=== PATIENT | female | born 1965 | race Two or more races ===

== ENCOUNTER 2024-08-13 06:16 | Day surgery (SDC) | payer BC, SELFPAY | END 2024-08-13 13:41 | disposition home or self-care (01) | LOC: GI 06:16 | PROVIDERS: ATTENDING PHYSICIAN Internal Medicine Gastroenterology | DX: Z12.11 Encounter for screening for malignant neoplasm of colon (principal); K64.8 Other hemorrhoids; K57.30 Diverticulosis of large intestine without perforation or abscess without bleeding; Z80.0 Family history of malignant neoplasm of digestive organs | CPT/HCPCS: G0105 ==

== ENCOUNTER 2025-05-14 06:19 | Day surgery (SDC) | payer BC, SELFPAY | END 2025-05-14 10:14 | disposition home or self-care (01) | LOC: GI 06:19 | PROVIDERS: ATTENDING PHYSICIAN Internal Medicine Gastroenterology | DX: R68.81 Early satiety (principal); R63.4 Abnormal weight loss; K25.9 Gastric ulcer, unspecified as acute or chronic, without hemorrhage or perforation; K31.89 Other diseases of stomach and duodenum | CPT/HCPCS: 43239; 88305; 88342 ==

== ENCOUNTER → 2025-05-27 13:22 | Outpatient (REF) | payer BC, SELFPAY | LOC: RAD 13:22 | PROVIDERS: ATTENDING PHYSICIAN Internal Medicine Gastroenterology; FAMILY PHYSICIAN Student in an Organized Health Care Education/Training Program | DX: R68.81 Early satiety (principal); R74.8 Abnormal levels of other serum enzymes; R63.4 Abnormal weight loss | CPT/HCPCS: 74177; Q9967 ==

== ENCOUNTER → 2025-06-03 14:46 | Outpatient (REF) | payer BC, SELFPAY ==
[2025-06-03 15:57] LABS: ALT (SGPT) 55 U/L (0-35); AST (SGOT) 79 U/L (14-36); Albumin 4.7 g/dl (3.5-5.0); Blood Urea Nitrogen 9 mg/dl (7-17); Calcium 9.4 mg/dl (8.4-10.2); Carbon Dioxide 26 mmol/L (22-30); Chloride 102 mmol/L (98-107); Glucose 106 mg/dl (70-99); Magnesium 2.2 mg/dl (1.6-2.3); Potassium 4.3 mmol/L (3.5-5.1); Sodium 139 mmol/L (135-145); Total Protein 7.3 g/dl (6.3-8.2); eGFR > 60.00
[2025-06-03 16:07] LABS: Alkaline Phosphatase > 2400 U/L (38-126)
[2025-06-03 16:20] LABS: Hematocrit 32.0 % (37.0-47.0); Hemoglobin 10.9 g/dL (12.0-16.0); Mean Corp Hgb Conc. 34.1 g/dL (33.0-37.0); Mean Corpuscular Volume 82.7 fL (81.0-99.0); Platelet Count 89 10^3/uL (130-400); Red Cell Dist. Width 15.9 % (11.5-14.5)
[2025-06-03 16:22] LABS: Absolute Neutrophils -Man Diff 4.8 10^3/uL (1.4-6.5); Platelets Checked Yes
[2025-06-03 16:23] LABS: Normal RBC Morphology No
[2025-06-03 16:24] LABS: Anisocytosis 2+; Hypochromasia 1+; Macrocytosis 1+; Microcytosis 1+; Polychromasia 1+; Total Cells Counted 100
[2025-06-03 16:27] LABS: CEA 43.0 ng/ml
[2025-06-03 16:31] LABS: CA 125 40.4 U/mL (0-35)
[2025-06-04 19:33] LABS: Vitamin D, 25-OH*** 25.8 ng/mL (30-80)
[2025-06-04 19:47] LABS: TSH 1.25 uIU/ml (0.47-4.68)
[2025-06-04 20:06] LABS: Vitamin B12 534 pg/ml (239-931)
[2025-06-06 00:04] LABS: CA 19-9 27 U/mL (<=35)
[2025-06-06 02:46] LABS: CA 27-29 103.4 U/mL (<=39.0)
== END ==
LOC: REG 14:46
PROVIDERS: ATTENDING PHYSICIAN Internal Medicine Hematology & Oncology; FAMILY PHYSICIAN Student in an Organized Health Care Education/Training Program
DX: R93.7 Abnormal findings on diagnostic imaging of other parts of musculoskeletal system (principal)
CPT/HCPCS: 36415; 80053; 82306; 82378; 82607; 82784; 83521; 83735; 84100; 84155; 84165; 84443; 85025; 86300; 86301; 86304; 86334

== ENCOUNTER 2025-06-06 21:54 | Emergency (ER) | payer BC, SELFPAY ==
[2025-06-06 22:01] VITALS: BP 154/75
--- NOTE | 2025-06-07 01:25 | ED.GENMED ---
History of Present Illness
General
Chief Complaint: Musculo-Skeletal Complaint
Source: patient
Exam Limitations: none
Time Seen by Provider: 06/07/25 01:13
Nursing documentation reviewed up to this point in time: agreed with
History of Present Illness
History of Present Illness:
59-year-old female w h/o PUD on Omeprazole and recently started Carafate, is here for numbness of her lower lip and tongue area she has been experiencing for the past few days the pain is 8-9 out of 10 when she walks and 3 out of 10 when she is
laying still. at 6 PM tonight she developed sudden excruciating pain in her right groin while she was walking into her house. She took Tylenol with no relief. No recollection of overuse or injury
She states her Alk Phos has been very high and she has appointment with Dr. Pepper in 6 days for a bone marrow biopsy.
Past History
Past History
ED Past Medical History: Other (Peptic ulcer disease yeah like)
ED Past Surgical History: None
Social History
Tobacco: Non-smoker
Personal:
Living: with family
Review of Systems
Review of Systems
Allergies reviewed?: Yes
All Other Systems: ROS reviewed and negative except as documented in HPI and ROS
Phy Exam
Physical Exam
Physical Exam:
GENERAL: No acute distress. A&Ox3.
CONSTITUTIONAL: Afebrile.
EYES: clear, conjunctivae normal
ENMT: moist mucus membranes, Pharynx nl
RESPIRATORY: Regular respirations, nonlabored, lungs clear.
CARDIOVASCULAR: Regular rate and rhythm, no murmurs, no rubs.
GI: Soft, nontender, normal BS
MUSCULOSKELETAL: Pain in right groin area elicited with straight leg raise, adduction and abduction with knee flexed. Pelvic rock negative. Distal neurovascular intact. Moves with ease. Well perfused. No edema
SKIN: Warm, dry, pink
PSYCH: Normal mood and affect. Well kept, interactive and appropriate
NEUROLOGIC: Awake, alert and oriented. No focal neurological deficits
Course
Orders/Labs/Results
Orders:
Orders
06/07/25 01:23
Hip, Right 2-3 Views [CR Hip - RT w/wo Pel 2-3 Vw*] Urgent
Comment:
Reason For Exam: groin pain, being worked up for CA, bone marrow bx
Include a pelvis x-ray?: Yes
06/07/25 01:54
Oxycodone/Acetaminophen [Percocet 5/325] 1 tablet PO NOW STA
Vital Signs
Initial and Last Documented VS:
Initial Vital Signs
Temp Pulse Resp BP Pulse Ox
97.8 F 98 18 154/75 97
06/06/25 22:01 06/06/25 22:01 06/06/25 22:01 06/06/25 22:01 06/06/25 22:01
Last Documented Vital Signs
Temp Pulse Resp BP Pulse Ox
97.8 F 89 16 122/64 96
06/06/25 22:01 06/07/25 01:35 06/07/25 01:35 06/07/25 01:35 06/07/25 01:35
MDM/Problems Addressed
Differential Diagnosis Includes:
numbness in lower lip and chin: may be related to malignancy
bony malignancy
MDM/Problems Addressed:
59-year-old female w h/o PUD on Omeprazole and recently started Carafate, is here for numbness of her lower lip and tongue area she has been experiencing for the past few days the pain is 8-9 out of 10 when she walks and 3 out of 10 when she is
laying still. at 6 PM tonight she developed sudden excruciating pain in her right groin while she was walking into her house. She took Tylenol with no relief. No recollection of overuse or injury
She states her Alk Phos has been very high and she has appointment with Dr. Pepper in 6 days for a bone marrow biopsy.
Patient had blood work done on 06/03 showing mild anemia, platelets 89, atypical lymphocytes,
Unremarkable. Chemistry showing greater than 2400 alk phos
Suspicious of her symptoms being due to metastatic disease
Will obtain right hip and pelvis x-ray to rule out pathologic fracture
2:45 a.m.
Xray right hip and pelvis reveal no acute fracture.
Plan: Pain medication, Rx for Tramadol sent to pt pharmacy
She will call Dr. Pepper Monday a.m.
Pt has walker at home to use if needed.
*Pulse Oximetry
SaO2: 97
Oxygen Mode of Delivery: Room air
Patient hypoxic: not evaluated
*Critical Care Note
Total Time (30-74mins, 75-104mins- exclusive of procedures): Not Applicable
ED Attending Note
-
Portions of this chart may have been created with voice recognition software.� Occasional wrong word or��sound alike� substitutions may have occurred due to the inherent limitations of voice recognition software.
Discharge Plan
Departure
Patient Disposition: Home (Routine Discharge)
Date of Disposition: 06/07/25
Time of Disposition: 02:47
Patient with high blood pressure during this ER visit?: No
Condition: Fair
Discharge Problem:
Right inguinal pain, Paresthesia of lower lip
Instructions: Muscle, joint, and bone pain (DC)
Prescriptions:
New
tramadol 50 mg tablet
50 mg PO Q8H PRN (Reason: Pain) Qty: 14 0RF
Referrals:
Jamila Pepper MD [Active, Oncology] - Follow up in 2-3 days
Activity Restrictions/Additional Instructions:
As we discussed, I sent a prescription to your pharmacy for Tramadol to use for pain id Ibuprofen or Tylenol is not helping
Call Dr. Pepper Monday and inform of today's visit and your groin pain and lip numbness.
Use your walker as needed.
Interventions
Interventions:
*Risk Screen - Suicide Last Done: 06/06/25 22:01
*General Assessment Last Done: 06/06/25 22:01
*Neglect/Abuse Screening Last Done: 06/06/25 22:01
*ED- Fall Risk Assessment Last Done: 06/07/25 01:32
*ED COVID-19 Vaccine History Last Done: 06/07/25 01:32
*ED Influenza Vaccine History Last Done: 06/07/25 01:32
ED-Musculoskeletal Assessment Last Done: 06/07/25 01:36
Discharge Date and Time
Print Language: BELARUSIAN
[2025-06-07 01:35] VITALS: BP 122/64
[2025-06-07 01:36] VITALS: BMI 29.1
[2025-06-07] MEDS: PERCOCET 5/325 1 TABLET PO (01:59)
[2025-06-07 03:14] VITALS: BP 144/61
== END 2025-06-07 03:20 | disposition home or self-care (01) ==
LOC: EMR 21:54
PROVIDERS: EMERGENCY PHYSICIAN Emergency Medicine; FAMILY PHYSICIAN Student in an Organized Health Care Education/Training Program
DX: R10.31 Right lower quadrant pain (principal); R20.2 Paresthesia of skin; Z87.11 Personal history of peptic ulcer disease
CPT/HCPCS: 99283; 73502

== ENCOUNTER → 2025-06-11 10:44 | Outpatient (REF) | payer BC, SELFPAY ==
[2025-06-11 11:34] VITALS: BP 135/60; BP_SYST 99
[2025-06-11 11:34] LABS: Hematocrit 29.9 % (37.0-47.0); Hemoglobin 10.1 g/dL (12.0-16.0); Mean Corp Hgb Conc. 33.8 g/dL (33.0-37.0); Mean Corpuscular Volume 83.3 fL (81.0-99.0); Platelet Count 97 10^3/uL (130-400); Red Cell Dist. Width 17.2 % (11.5-14.5)
[2025-06-11 11:54] LABS: INR 1.36; PT 17.3 Sec (11.4-14.6)
[2025-06-11 12:37] LABS: Absolute Neutrophils -Man Diff 4.8 10^3/uL (1.4-6.5); Anisocytosis Slight; Normal RBC Morphology No; Platelets Checked Yes; Polychromasia Slight; Total Cells Counted 100
[2025-06-11 12:40] VITALS: BP 129/60; BP_SYST 99
== END ==
LOC: RADI 10:44
PROVIDERS: ATTENDING PHYSICIAN Internal Medicine Hematology & Oncology; FAMILY PHYSICIAN Student in an Organized Health Care Education/Training Program
DX: M89.8X8 Other specified disorders of bone, other site (principal); D69.6 Thrombocytopenia, unspecified; D64.9 Anemia, unspecified; D68.8 Other specified coagulation defects
CPT/HCPCS: 36415; 38222; 77012; 85025; 85610; 88305; 88311; 88312; 88313

== ENCOUNTER → 2025-06-30 08:16 | Outpatient (REF) | payer BC, SELFPAY ==
[2025-06-30 08:55] VITALS: BP 112/74; BP_SYST 101; BMI 27.5
[2025-06-30] MEDS: ANCEF 10 IV (09:17)
[2025-06-30 10:15] VITALS: BP 117/47; BP_SYST 92
[2025-06-30 10:30] VITALS: BP 115/52; BP_SYST 89
[2025-06-30 10:45] VITALS: BP 114/50; BP_SYST 91
== END ==
LOC: RADI 08:16
PROVIDERS: ATTENDING PHYSICIAN Internal Medicine Hematology & Oncology
DX: C16.0 Malignant neoplasm of cardia (principal); C41.9 Malignant neoplasm of bone and articular cartilage, unspecified
CPT/HCPCS: 36561; 76937; 77001; 99152; 99153; C1788

== ENCOUNTER 2025-07-13 23:39 | Inpatient (IN) | payer BC, SELFPAY ==
[2025-07-13 19:11] VITALS: BP 115/53
[2025-07-13 19:17] VITALS: BMI 26.6
[2025-07-13 20:00] VITALS: BP 123/49
[2025-07-13] MEDS: NSS 1000 IV (20:43)
[2025-07-13 21:00] LABS: Hematocrit 22.7 % (37.0-47.0); Hemoglobin 8.0 g/dL (12.0-16.0); Mean Corp Hgb Conc. 35.2 g/dL (33.0-37.0); Mean Corpuscular Volume 80.2 fL (81.0-99.0); Red Cell Dist. Width 19.3 % (11.5-14.5)
[2025-07-13 21:11] LABS: Platelet Count 73 10^3/uL (130-400)
[2025-07-13] MEDS: BENADRYL 25 MG IV (21:11)
[2025-07-13] MEDS: REGLAN 10 MG IV (21:11)
[2025-07-13 21:20] LABS: Albumin 3.8 g/dl (3.5-5.0)
[2025-07-13 21:21] LABS: Troponin I < 0.012 ng/ml
[2025-07-13 21:22] LABS: Absolute Neutrophils -Man Diff 12.3 10^3/uL (1.4-6.5)
[2025-07-13 21:23] LABS: Normal RBC Morphology No; Platelets Checked Yes
[2025-07-13 21:24] LABS: Anisocytosis 1+; Hypochromasia 1+; Microcytosis 1+; Total Cells Counted 100
[2025-07-13 21:35] LABS: ALT (SGPT) 36 U/L (0-35); AST (SGOT) 53 U/L (14-36); Blood Urea Nitrogen 6 mg/dl (7-17); Calcium 4.9 mg/dl (8.4-10.2); Carbon Dioxide 20 mmol/L (22-30); Chloride 100 mmol/L (98-107); Estimated Creatinine Clearance 90 ml/min; Glucose 105 mg/dl (70-99); Lipase 270 U/L (23-300); Potassium 3.4 mmol/L (3.5-5.1); Sodium 131 mmol/L (135-145); Total Protein 6.5 g/dl (6.3-8.2); eGFR > 60.00
[2025-07-13 21:44] LABS: Alkaline Phosphatase > 2400 U/L (38-126)
[2025-07-13 22:09] LABS: Urine Character Cloudy (Clear)
[2025-07-13 22:22] LABS: Urine Squamous Cell 0-2 /LPF (Few)
[2025-07-13 22:23] LABS: Urine White Cell 50-60 /HPF (0-5)
--- NOTE | 2025-07-13 22:28 | ED.GENMED ---
History of Present Illness
General
Chief Complaint: Change Level of Consciousness
Source: patient and family
Time Seen by Provider: 07/13/25 20:12
History of Present Illness
History of Present Illness:
Note:
CHIEF COMPLAINT(S)
Fatigue and episodes of vision darkening.
HISTORY OF PRESENT ILLNESS
The patient is a 60-year-old female with a history of gastric cancer currently undergoing chemotherapy. She presents with fatigue and episodes of vision darkening. The symptoms started a few days ago, becoming notably worse a few hours prior to
presentation. The patient had her first chemotherapy treatment with cisplatin on Monday, which was administered over 48 hours, and has experienced increased lethargy since then. This evening, she experienced a new onset of darkness in her vision
that persisted for a few minutes, resembling an episode she had briefly on the day of treatment that resolved quickly.
Her oral intake has been poor due to the effects of gastric cancer and chemotherapy, contributing to dehydration. She was scheduled for an outpatient EGD with biopsy tomorrow, but due to her symptoms, there is a consideration of postponing. The
patient describes her vision episodes as a complete darkening of vision lasting a few seconds, followed by resolution. These episodes were associated with feelings of weakness, suggesting possible hypotension. The patient denies any chest pain and
has not experienced fever.
PAST MEDICAL AND SURGICAL HISTORY
History of gastric cancer currently under chemotherapy treatment with cisplatin.
ADDITIONAL HISTORY OBTAINED FROM SOURCES OTHER THAN THE PATIENT
The daughter provides additional information, noting the patient has been lethargic and her fluid intake has been poor. She reports that the patient has been more lethargic than usual following her chemotherapy treatment.
CHRONIC MEDICAL CONDITIONS SIGNIFICANTLY AFFECTING CARE
Gastric cancer undergoing chemotherapy.
SOCIAL DETERMINANTS AFFECTING HEALTH
The patient denies alcohol consumption issues, and there are no other specific social determinants mentioned.
MEDICATIONS
Uses ondansetron (Zofran) for nausea, last taken at 5:30 PM with some relief.
PHYSICAL EXAM
General: Alert, no acute distress.
Skin: Warm, dry.
Head: Normocephalic, atraumatic.
Neck: Supple, trachea midline.
Eye, Ears, Nose, Mouth, and Throat: Oral mucosa moist.
Cardiovascular: Irregular, a bit hyperdynamic, low blood pressure at 129/71 mmHg; no lower extremity edema.
Respiratory: Respirations are non-labored.
Gastrointestinal: Abdomen nondistended, no tenderness.
Back: Normal range of motion, normal alignment.
Musculoskeletal: Normal range of motion, normal strength.
Neurological: Alert and oriented to person, place, time, and situation, no focal neurological deficit observed.
Psychiatric: Cooperative, appropriate mood and affect.
PROBLEM LIST
Acute Problems:
- Fatigue
- Vision darkening episodes
- Dehydration possibly secondary to poor oral intake and chemotherapy
Chronic Problems:
- Gastric cancer under chemotherapy
PLAN
1. Obtain laboratory tests to assess kidney function, electrolytes, and compare with previous results.
2. Administer intravenous fluids to address dehydration.
3. Perform electrocardiogram to assess heart rhythm.
4. Consider postponing the scheduled EGD if current labs suggest significant derangement.
5. Monitor for worsening nausea and manage symptomatically; patient to inform if symptoms worsen for further intervention.
6. Require a urine sample for further analysis.
DIFFERENTIAL DIAGNOSIS
The Differential Diagnosis includes, in no particular order and is not limited to:
1. Dehydration-induced orthostatic hypotension
2. Chemotherapy side effects
3. Electrolyte imbalance
4. Anemia
5. Acute kidney injury
6. Stroke
7. Cardiac arrhythmia
8. Syncope
9. Transient ischemic attack
10. Hyponatremia
EKG
My independent EKG interpretation is:
- Time of EKG not specified
- Rhythm: Sinus Tachycardia
- Heart Rate: 102 bpm
- [place]: Normal
- QTc Interval: 495 ms
- Abnormalities: Interventricular Conduction Delay
- SD Interval: Not specified
- QRS Duration: Not specified
- Abnormalities: Poor R-wave Progression
- ST Segment/T Wave: No acute ischemia observed
Disposition:
SUMMARY OF ENCOUNTER
A 60-year-old female undergoing chemotherapy for gastric cancer presented with profound weakness and nausea. Laboratory tests revealed leukocytosis with a white blood cell count of 14.7, anemia with hemoglobin at 8.0, and mild thrombocytopenia with
a platelet count of 73. There was also 10% bandemia. Chemistry panel noted hypokalemia at 3.4 and concerning hypocalcemia with a corrected calcium level of 4.9 and an ionized calcium of 0.64. Alkaline phosphatase was significantly elevated at
greater than 2400. Troponin levels were negative. Urinalysis showed 3+ leukocyte esterase, 50�60 white blood cells, and many bacteria, suggesting a urinary tract infection. Management included replacing potassium and calcium, checking blood cultures
and lactic acid, treating for a urinary tract infection, continuing intravenous fluids, and providing antiemetics. The patient was afebrile and medically stable after treatment and was admitted for further care.
DISPOSITION
Admit.
ASSESSMENT
- Profound weakness and nausea possibly secondary to chemotherapy effects, electrolyte imbalance, and urinary tract infection.
- Leukocytosis, anemia, and thrombocytopenia likely related to chemotherapy and possible infection.
- Hypokalemia and hypocalcemia requiring replacement.
- Urinary tract infection suggested by urinalysis findings.
EMERGENCY TREATMENTS ADMINISTERED
Intravenous fluids, potassium replacement, calcium replacement, and antiemetics were administered.
MANAGEMENT OF THE PATIENTS CARE WAS DISCUSSED WITH
Hospitalist.
PLAN
- Continue intravenous fluids to maintain hydration and electrolyte balance.
- Replace potassium and calcium to address deficiencies.
- Initiate antibiotic therapy for a urinary tract infection based on urinalysis results.
- Monitor vital signs and laboratory values closely.
- Admit the patient for further evaluation and management given significant laboratory derangements.
INDEPENDENT REVIEW OF LABS AND INTERPRETATION OF TESTS
My independent review of the complete blood count shows leukocytosis with a white blood cell count of 14.7 and anemia with hemoglobin at 8.0.
My independent review of the chemistry panel reveals hypokalemia at 3.4 and hypocalcemia with a corrected calcium level of 4.9 and an ionized calcium at 0.64.
My independent review of the urinalysis indicates a urinary tract infection with 3+ leukocyte esterase, 50�60 white blood cells, and many bacteria.
MEDICATION RECONCILIATION
Potassium replacement, calcium replacement, and antiemetics were administered during the visit.
MEDICAL DECISION MAKING
1. Number and Complexity of Problems Addressed:
Chronic conditions affecting care include gastric cancer undergoing chemotherapy.
Differential diagnosis includes dehydration-induced orthostatic hypotension, chemotherapy side effects, electrolyte imbalance, anemia, acute kidney injury, stroke, cardiac arrhythmia, syncope, transient ischemic attack, and hyponatremia.
2. Data:
Category 1:
- Laboratory tests reviewed include the complete blood count, chemistry panel, and urinalysis.
Category 2:
- Clinical information was obtained from the patients history and lab results.
Category 3:
- Discussion of management with hospitalist based on the laboratory and clinical findings.
3. Risk:
- Prescription drug management or therapy requiring monitoring for toxicity.
- Decisions regarding diagnostic testing with risks such as blood cultures and lactic acid.
- Admission for further management due to significant laboratory derangements and risk of complications.
DIAGNOSIS
- Anemia, unspecified (D64.9)
- Thrombocytopenia, unspecified (D69.6)
- Leukocytosis, unspecified (D72.829)
- Hypokalemia (E87.6)
- Hypocalcemia (E83.51)
- Urinary tract infection, site not specified (N39.0)
Past History
Past History
ED Past Medical History: Other (Peptic ulcer disease yeah like)
ED Past Surgical History: None
Social History
Tobacco: Non-smoker
Personal:
Living: with family
Phy Exam
Physical Exam
Physical Exam:
.
Course
Orders/Labs/Results
Orders:
Orders
07/13/25 19:19
Electrocardiogram (*1) Urgent
Reason for Study: Vertigo / Dizzy
Other Reason for Exam: increased lethergy
EKG- Treatment ONCE
07/13/25 20:31
0.9% Sodium Chloride 1000 ml [Nss] 1,000 ml IV BOLUS
07/13/25 20:42
Complete Blood Count/With Diff Urgent
Comprehensive Metabolic Panel Urgent
Lipase Urgent
Magnesium Urgent
Manual Differential Urgent
Phosphorus Urgent
Comment: ADD ON
Troponin I Urgent
07/13/25 20:55
Diphenhydramine [Benadryl] 25 mg IV NOW STA
Metoclopramide [Reglan] 10 mg IV NOW STA
07/13/25 22:01
Urinalysis Reflex To Culture Urgent
Date Specimen was Collected: 07/13/25
Time Specimen was Collected: 21:59
Urine Microscopic Reflex Cult Urgent
Urine Culture Urgent
[facility] Source: U
Specimen Description:
Date Specimen was Collected: 07/13/25
Time Specimen was Collected: 21:59
07/13/25 22:16
Ionized Calcium Urgent
07/13/25 22:27
Calcium CHLORIDE [Calcium Chloride 10% Syringe] 1,000 mg 0.9% Sodium Chloride 50 ml [Nss] 50 ml IV NOW
07/13/25 22:35
Calcium CHLORIDE [Calcium Chloride 10% Syringe] 1,000 mg 0.9% Sodium Chloride 50 ml [Nss] 50 ml IV NOW
07/13/25 22:37
Add On- LAB Urgent
Tests Added?: Magnesium
Potassium Chloride 10% Elixir [KCl Elixir] 40 meq PO NOW STA
07/13/25 22:41
Lactic Acid Q4H
Comment: CANCEL 2nd LACTIC ACID IF 1st LACTIC ACID IS LESS THAN 2
Blood Culture Q30M
[facility] Source: Blood/Venous
Specimen Description:
07/13/25 22:43
CefTRIAXone [Rocephin] 2,000 mg IV NOW STA
07/13/25 23:00
Blood Culture Q30M
[facility] Source: Blood/Venous
Specimen Description:
Dextrose 5%/0.45%Sodchl 500 ml [D5/0.45%NaCl] 500 ml Potassium Chloride [KCl] 20 meq IV 120 mls/hr
07/13/25 23:08
Add On- LAB Stat
Tests Added?: phosphorous level,
07/14/25 02:30
Lactic Acid Q4H
Comment: CANCEL 2nd LACTIC ACID IF 1st LACTIC ACID IS LESS THAN 2
Abnormal Lab Results
07/13/25 07/13/25 07/13/25
20:42 22:01 22:16
WBC 14.7 H 10^3/uL
(4.8-10.8)
RBC 2.83 L 10^6/uL
(4.20-5.40)
Hgb 8.0 L g/dL
(12.0-16.0)
Hct 22.7 L %
(37.0-47.0)
MCV 80.2 L fL
(81.0-99.0)
RDW 19.3 H %
(11.5-14.5)
Plt Count 73 L 10^3/uL
(130-400)
MPV 10.7 H fL
(7.4-10.4)
Abs Neuts (Manual) 12.3 H 10^3/uL
(1.4-6.5)
Band Neutrophils 10 H %
(0-3)
Lymphocytes (Manual) 10 L %
(20-51)
Sodium 131 L mmol/L
(135-145)
Potassium 3.4 L mmol/L
(3.5-5.1)
Carbon Dioxide 20 L mmol/L
(22-30)
BUN 6 L mg/dl
(7-17)
Creatinine 0.4 L mg/dL
(0.6-1.0)
Glucose 105 H mg/dl
(70-99)
Calcium 4.9 L* mg/dl
(8.4-10.2)
Ionized Calcium 0.64 L mMOL/L
(1.15-1.33)
AST 53 H U/L
(14-36)
ALT 36 H U/L
(0-35)
Alkaline Phosphatase > 2400 H U/L
(38-126)
Urine Ketones 3+ A
(Negative)
Ur Occult Blood Reflex 2+ A
(Negative)
Urine Urobilinogen 2+ A
(Neg - 1+)
Leukocyte Esterase Rfl 3+ A
(Negative)
Urine RBC 7-10 A /HPF
(0-2)
Urine WBC (Reflex) 50-60 A /HPF
(0-5)
Urine Bacteria (Reflex) Many A
(Negative)
Urine Albumin (Reflex) 2+ A
(Neg - Trace)
07/13/25 20:42
07/13/25 20:42
Vital Signs
Initial and Last Documented VS:
Initial Vital Signs
Temp Pulse Resp BP Pulse Ox
98.6 F 102 22 115/53 98
07/13/25 19:11 07/13/25 19:11 07/13/25 19:11 07/13/25 19:11 07/13/25 19:11
Last Documented Vital Signs
Temp Pulse Resp BP Pulse Ox
98.6 F 103 23 123/49 96
07/13/25 19:11 07/13/25 22:30 07/13/25 22:30 07/13/25 20:00 07/13/25 22:30
*Pulse Oximetry
SaO2: 98
Oxygen Mode of Delivery: Room air
Patient hypoxic: no
*Critical Care Note
Total Time (30-74mins, 75-104mins- exclusive of procedures): Not Applicable
ED Attending Note
-
Portions of this chart may have been created with voice recognition software.� Occasional wrong word or��sound alike� substitutions may have occurred due to the inherent limitations of voice recognition software.
Discharge Plan
Departure
Patient Disposition: Admit
Date of Disposition: 07/13/25
Time of Disposition: 22:29
Admit to: Telemetry
Presentation/result/management discussed w/ accepting MD/DO: Hospitalist
Discharge Problem:
Hypocalcemia, Chemotherapy adverse reaction, Anemia, UTI (urinary tract infection), Acute hypokalemia, Thrombocytopenia
Prescriptions:
No Action
acetaminophen [Tylenol] 325 mg Tablet
650 mg PO Q6H PRN (Reason: pain)
sucralfate 1 gram Tablet
1 g PO BID
omeprazole 40 mg Capsule,Delayed Release(Dr/Ec)
40 mg PO DAILY
gabapentin 100 mg Capsule
100 mg PO HS
Referrals:
Karina Knutson MD [Family Provider]
Interventions
Interventions:
*Risk Screen - Suicide Last Done: 07/13/25 19:20
*General Assessment Last Done: 07/13/25 19:20
*Neglect/Abuse Screening Last Done: 07/13/25 19:20
*ED COVID-19 Vaccine History Last Done: 07/13/25 19:20
*ED Influenza Vaccine History Last Done: 07/13/25 19:20
[facility] Risk Assessment Tool Last Done: 07/13/25 19:09
ED- Cardiac Assessment Last Done: 07/13/25 19:22
ED- Neurological Assessment Last Done: 07/13/25 19:22
ED-Psychological Assessment Last Done: 07/13/25 19:22
ED- Pulmonary Assessment Last Done: 07/13/25 19:22
Discharge Date and Time
Print Language: BURKINAN
--- NOTE | 2025-07-13 22:44 | HPS.HSE ---
Family Physician
-
Family Physician: Karina Knutson MD
Chief Complaint
-
Weakness and fatigue
History of Present Illness
This is a 60-year-old female who has a recent diagnosis of gastric cancer status post EGD and bone marrow biopsy which is confirmatory of a diagnosis presents to the emergency department after recent infusion with FOLFOX with symptoms of weakness
dizziness and lightheadedness.
Patient reports perioral paresthesias, numbness and tingling in the fingertips, generalized weakness, nausea without vomiting. Denies any diarrhea. Denies any direct bony pain. Denies having fevers or chills.
Reports poor intake over the last few days. She is pending a follow-up EGD in a.m. and has been followed by [facility].
Patient takes omeprazole twice daily, as needed Zofran as well as Carafate and recently was started on calcium supplementation.
In the emergency department she was afebrile blood pressure was 115 respiratory, she was tachycardic to 103 and ECG shows sinus tachycardia at rate of [address] or T wave changes. White count was 14.7, hemoglobin was 8.0 which is
down from 10.1 recently, platelet count of 73. She has 10% bands. Electrolytes notable for potassium of 3.4, normal BUN and creatinine and a normal glucose. Calcium is down to 4.9 with ionized calcium of 0.64. She has an elevated alk phos to
2400 AST and ALT mildly elevated at 53 and 38. She otherwise has normal lipase. Troponin was unremarkable. Urinalysis was positive
Medical History
Past Medical History
Past Medical History: Reports Cancer (Gastric cancer) and GERD
Past Surgical History: Reports None
Social History
Tobacco: Non-smoker
Alcohol: None
Personal:
Living: With Family
Family History
Family History: Not pertinent
Allergies / Home Medications
Allergies reflects when Allergies were last updated in [facility].
Home Medications with original date entered in [facility]
Allergy/Medication List:
Allergies
Allergy/AdvReac Type Severity Reaction Status Date / Time
No Known Allergies Allergy Verified 06/26/25 13:35
Home Medications
acetaminophen 325 mg tablet (Tylenol) 650 mg PO Q6H PRN pain 06/09/25
omeprazole 40 mg capsule,delayed release 40 mg PO DAILY 06/09/25
sucralfate 1 gram tablet 1 g PO BID 06/09/25
gabapentin 100 mg capsule 100 mg PO HS 06/30/25
Review of Systems
-
Constitutional: Reports Weight Loss and Fatigue
EENT: Reports No Symptoms
Respiratory: Reports No Symptoms
Cardiac: Reports No Symptoms
Abdomen/GI: Reports No Symptoms
: Reports No Symptoms
Musculoskeletal: Reports No Symptoms
Skin: Reports No Symptoms
Neurological: Reports No Symptoms
Endocrine: Reports No Symptoms
Hematologic/Lymphatic: Reports No Symptoms
Psych: Reports No Symptoms
Physical Exam
Vital Signs
Vital Signs
Temp Pulse Resp BP Pulse Ox
98.6 F 103 23 123/49 96
07/13/25 19:11 07/13/25 22:30 07/13/25 22:30 07/13/25 20:00 07/13/25 22:30
Physical Exam
General: Well Developed, Well Nourished and No Apparent Distress
HEENT: NormoCephalic, Moist mucous membranes and Atraumatic
Respiratory: Clear
Cardiac: S1/S2 and Regular Rhythm; No Murmur or Rub
GI: Soft, Non Tender, Non Distended and Normal Bowel Sounds; No Organomegaly
Rectal: Deferred by Provider
Genito-urinary: Deferred by me
Musculoskeletal: No Clubbing, No Cyanosis and No Edema
Skin: No Rash
Neuro: AO x 3 and Nonfocal/grossly intact
Hematologic/Lymphatic: No Lymphadenopathy
Laboratory Results
-
07/13/25 20:42
07/13/25 20:42
Laboratory Results
Total Bilirubin 1.0 mg/dl (0.2-1.3) 07/13/25 20:42
AST 53 U/L (14-36) H 07/13/25 20:42
ALT 36 U/L (0-35) H 07/13/25 20:42
Alkaline Phosphatase > 2400 U/L (38-126) H 07/13/25 20:42
Troponin I < 0.012 ng/ml 07/13/25 20:42
Lipase 270 U/L (23-300) 07/13/25 20:42
Data Reviewed
-
Medical Tests (Nuc Med, Echo, EKG etc): Image Personally Visualized and interpreted
Lab Data: Labs Reviewed by me
Old Records: Reviewed
Impression/Plan
-
IMPRESSION:
60 y.o with h/o gastric ca (negative biopsy from stomach), positive bone marrow biopsy for gastric ca, s/p FOLFOX recently comes to ED with weakness, nausea, blurred vision, s/p FOLFOX on 07/08. Has perioral parasthesias but no tetany. Found to be
profoundly hypocalcemic to 4.9, ionized calcium 0.64. Mild hypokalemia and mild hyponatremia. Anemia to 8.0 and likely a UTI.
PLAN:
Symptomatic Hypocalcemia - Suspect secondary to chemo but could be malignancy related.
- admit to telemetry
- mag level pending
- check vit d and 1,25 vit d, pth and phosphorous levels
- start IV calcium supplementation
- oral calcium supplementation and vit d supplementation
- IV fluids and K supplementation
- nephrology consult
UTI - + u/a, leukocytosis with bandemia (likely chemo, no known stimulating agent given)
- blood and urine cultures
- IV ceftriaxone
Symptomatic anemia - likely due to chemotherapy (thrombocytopenia also noted). No evidence of bleeding but possible gastric mass can cause GI bleed. Pending repeat EGD
- type and screen, transfuse for Hgb < 7
- trend h/h
- retic, iron panel
- continue ppi bid orally
- oncology consultation
- GI consultation
Thrombocytopenia - present since May. Downtrending. No current risk of bleeding
- monitor, ok for dvt ppx
Abnormal liver enzymes - unchanged from May. Related to malignancy
DVT PPX - heparin sq q 12
Code status - Full Code
[2025-07-13 23:00] VITALS: BP 117/57
[2025-07-13 23:11] LABS: Magnesium 1.7 mg/dl (1.6-2.3)
[2025-07-13] MEDS: ROCEPHIN 2000 MG IV (23:35)
[2025-07-13] MEDS: CALCIUM CHLORIDE 10% SYRINGE 60 MG IV (23:38)
[2025-07-14] VITALS (14 sets, daily range): BP systolic 101–156; BP diastolic 44–76; BMI 26.4
[2025-07-14] MEDS: KCL 160 MEQ IV ×2 (00:23→02:33)
[2025-07-14] MEDS: TYLENOL 650 MG PO (00:38)
[2025-07-14] MEDS: NSS 1000 IV ×2 (00:48→11:08)
[2025-07-14] MEDS: CALCIUM GLUCONATE 280 MG IV (02:33)
[2025-07-14 05:56] LABS: Blood Urea Nitrogen 5 mg/dl (7-17); Calcium 5.5 mg/dl (8.4-10.2); Carbon Dioxide 18 mmol/L (22-30); Chloride 107 mmol/L (98-107); Estimated Creatinine Clearance 90 ml/min; Glucose 112 mg/dl (70-99); Iron 158 ug/dl (37-170); Magnesium 1.8 mg/dl (1.6-2.3); Potassium 4.1 mmol/L (3.5-5.1); Sodium 132 mmol/L (135-145); eGFR > 60.00
[2025-07-14 05:59] LABS: Hematocrit 19.2 % (37.0-47.0); Hemoglobin 6.7 g/dL (12.0-16.0); Mean Corp Hgb Conc. 34.9 g/dL (33.0-37.0); Mean Corpuscular Volume 80.7 fL (81.0-99.0); Platelet Count 59 10^3/uL (130-400); Red Cell Dist. Width 19.6 % (11.5-14.5); Reticulocyte Count 0.9 % (0.4-2.8)
[2025-07-14 06:02] LABS: Total Iron Binding Capacity 263 ug/dl (265-497)
[2025-07-14 06:11] LABS: Vitamin D, 25-OH*** 19.2 ng/mL (30-80)
[2025-07-14 06:24] LABS: TSH 1.35 uIU/ml (0.47-4.68)
--- NOTE | 2025-07-14 07:23 | PTCARENOTE ---
Patient arrived on unit @0054 via stretcher from ED, ambulate to bed with assist x1. Patient AAOx3 denies any pain or discomfort. Skin assessment completed oriented to unit, call martinez within reach.
[2025-07-14] MEDS: NSS IV (07:32)
[2025-07-14] MEDS: CARAFATE 1 GRAM PO (08:51)
[2025-07-14] MEDS: HEPARIN 5000 UNITS SC (08:52)
[2025-07-14] MEDS: OSCAL 500 + D 500 MG PO ×3 (08:52→21:17)
[2025-07-14] MEDS: PROTONIX 40 MG PO ×2 (08:52→20:26)
[2025-07-14] MEDS: ZOFRAN 4 MG IV (09:02)
--- NOTE | 2025-07-14 09:15 | CON.ONC ---
Consultation
-
Date Consultation Requested: 07/14/25
Date Consultation Performed: 07/14/25
Requesting Provider: Dr. Shirley Coley
Performing Provider: Dr. Joleen Cohn
Reason for Consultation: metastatic gastric cancer, anemia
Impression
Impression
stage IV gastric cancer via bone marrow biopsy, no loss of mismatch repair deficiency on Guardent 360 or [employer]- PDL 1 not detected -EGD gastric bx May 2025 no malignancy -PET with stomach & bone uptake
s/p C1 FOLFOX 07/08, pegfilgrastim 07/10
s/p 1st dose of xgeva 07/08
AOCD/malignancy DONI started 07/10 - iron 144, IS 48. ferritin 984 -SPEP no M spike -acute on chronic anemia
pancytopenia 2/2 bone marrow involvement of malignancy, chemotherapy
healing fracture pubic ramus
hypocalcemia 2/2 xgeva
hypovitaminosis D
stable transaminitis
unclear etiology for elevated Ca27.29
Plan
Plan
follow bcx
stat CBC
transfuse Hgb <7 or as needed for sxs anemia
monitor for bleeding
check retic, B12, folate
replete calcium
f/u GI consult to consider repeat EGD
will ask path to added ER/FL/HER2 to IHC from BMBx
Pt son at the bedside during visit provided updates and questions answered
Patient History
History of Present Illness
60yo F who presented to ER for evaluation of buccal numbness, b/l hand numbness, general weakness, dizziness, and lightheadeness. Her initial evaluation revealed a WBC 14.7, Hgb 8, platelet count 73,000, Na 131, potassium 3.4, calcium 4.9,
ionized calcium 0.64, AST 53, ALT 36, Alk phos 2400.
In brief, she is known to Dr. Pepper for management of stage IV gastric cancer. She was evaluated by GI due to abdominal fullness, early satiety, weight loss, and nausea. EGD May 2025 showed a nonbleeding gastric ulcer, biopsy showed benign
gastric antral mucosa with mol,d reactive changes. It was negative for dysplasia or malignancy. Random stomach biopsies showed gastric fundic type mucosa with no significant inflammation, H. pylori negative. Her CT scans of the abdomen and pelvis
05/27/2025 showed widespread heterogeneous appearance of included osseous structures with likely innumerable scattered sclerotic foci. She underwent a bone marrow biospy 06/11/2025 that showed trilineage aplasia and hypercellular bone marrow entirely
replaced by metastatic carcinoma, IHC suggested GI origin. Molecular�tumor�type�was�consistent�with�gastroesophageal�with�greater�than�99%�confidence�level�.�She underwent C1 FOLFOX 07/08, pegfilgrastim 07/10. She also started xgeva bone ppx 07/08 and
DONI for AOCD/malignancy 07/10.
Clinically, she reports continued periorbital and b/l hand paraesthesias, nausea, dizziness, and changes in hearing. She denies vomiting, abdominal pain, chest pain, palpitations.
Afebrile, no hypoxia or hypotension.
Past-Medical/Surgical History
PMH: GERD
PSH bone marrow biopsy
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 denies tobacco, ETOH, or recreational drugs
Family: father lung cancer, mother colon cancer stage I
Patient Medication
�Medication �Instructions �Recorded �Confirmed �Last Taken �Type
acetaminophen 325 mg tablet 650 mg PO Q6H PRN pain 06/09/25 06/30/25 06/29/25 History
(Tylenol)
omeprazole 40 mg capsule,delayed 40 mg PO DAILY 06/09/25 06/30/25 06/29/25 History
release
sucralfate 1 gram tablet 1 g PO BID 06/09/25 06/30/25 06/29/25 History
gabapentin 100 mg capsule 100 mg PO HS 06/30/25 06/30/25 06/29/25 History
Active Medications
Generic Name Dose Route Start Last Admin
Trade Name Freq PRN Reason Stop Dose Admin
Acetaminophen 650 mg 07/14/25 00:13 07/14/25 00:38
Acetaminophen 325 Mg Tablet PO 08/11/25 00:12 650 mg
Q4HPRN PRN Administration
mild pain/MCGINNIS/temp> 100.4F
Bisacodyl 10 mg 07/14/25 01:21
Bisacodyl 10 Mg Rectal Suppository RECTAL 08/11/25 01:20
[id number] PRN
constipation
Calcium/Vitamin D 500 mg 07/14/25 08:00 07/14/25 08:52
Calcium Carbonate 500 Mg/Vitamin D 5 Mcg (200 Units) Tablet PO 08/11/25 07:59 500 mg
TID MARIANA Administration
Ceftriaxone Sodium 1,000 mg 07/14/25 23:00
Ceftriaxone 1000 Mg / 10 Ml Vial IV
Q24H MARIANA
Heparin Sodium 5,000 units 07/14/25 08:00 07/14/25 08:52
Heparin 5,000 Units/Ml 1 Ml Vial SC 08/11/25 07:59 5,000 units
Q12 MARIANA Administration
Heparin Sodium (Porcine) 500 unit 07/14/25 03:45 07/14/25 05:00
Heparin Flush Pf (100 Unit/Ml) 5 Ml Syringe IV 08/11/25 03:44 500 unit
PER PROTOCOL MARIANA Administration
Sodium Chloride 1,000 mls @ 100 mls/hr 07/14/25 01:21 07/14/25 07:32
Nss IV Not Given
.Q10H MARIANA
Ondansetron HCl 4 mg 07/14/25 01:21 07/14/25 09:02
Ondansetron 4 Mg/2 Ml Vial IV 08/11/25 01:20 4 mg
Q6HPRN PRN Administration
nausea and vomiting
Oxycodone HCl 5 mg 07/14/25 01:21
Oxycodone 5 Mg Regular Release Tablet PO 07/28/25 01:20
Q4HPRN PRN
moderate pain
Pantoprazole Sodium 40 mg 07/14/25 08:00 07/14/25 08:52
Pantoprazole 40 Mg Delayed Release Tablet PO 08/11/25 07:59 40 mg
BID MARIANA Administration
Polyethylene Glycol 17 grams 07/14/25 01:21
Polyethylene Glycol Powder 17 Grams Packet PO 08/11/25 01:20
DAILYPRN PRN
constipation
Senna/Docusate Sodium 1 tablet 07/14/25 01:21
Docusate W/Senna (Dyana-Colace) Tablet PO 08/11/25 01:20
BIDPRN PRN
constipation
Sodium Chloride 0 flush 07/14/25 01:00
Sodium Chloride 0.9% (Flush) Syringe IV 08/11/25 00:59
PER PROTOCOL MARIANA
Sterile Water 10 ml 07/14/25 23:00
Sterile Water For Injection 10 Ml Vial IV 08/11/25 22:59
Q24H MARIANA
Sucralfate 1 gram 07/14/25 08:00 07/14/25 08:51
Sucralfate 1 Gram Tablet PO 08/11/25 07:59 1 gram
BID MARIANA Administration
Review of Systems
-
ROS is notable for HPI, otherwise negative
Physical Exam
-
General: No Apparent Distress
HEENT: Moist Mucous Membranes; Negative Jaundice
Pulmonary: Other (unlabored)
GI: Soft
Extremities: Pulses Present
Neurology: Non Focal
Skin: Warm
Psych: Calm
Labs
Lab Results
WBC 13.6 10^3/uL (4.8-10.8) H 07/14/25 05:15
RBC 2.38 10^6/uL (4.20-5.40) L 07/14/25 05:15
Hgb 6.7 g/dL (12.0-16.0) L* 07/14/25 05:15
Hct 19.2 % (37.0-47.0) L* 07/14/25 05:15
MCV 80.7 fL (81.0-99.0) L 07/14/25 05:15
MCH 28.2 pg (27.0-31.0) 07/14/25 05:15
MCHC 34.9 g/dL (33.0-37.0) 07/14/25 05:15
RDW 19.6 % (11.5-14.5) H 07/14/25 05:15
Plt Count 59 10^3/uL (130-400) L 07/14/25 05:15
MPV 10.6 fL (7.4-10.4) H 07/14/25 05:15
Creatinine 0.4 mg/dL (0.6-1.0) L 07/14/25 05:15
Vital Signs
Vital Signs
Temp Pulse Resp BP Pulse Ox
98.2 F 105 16 119/60 97
07/14/25 08:07 07/14/25 08:07 07/14/25 08:07 07/14/25 08:07 07/14/25 08:07
--- NOTE | 2025-07-14 10:07 | W.PN.HOSP.TC ---
Today's Communication/Plan
-
see plan
Assessment / Plan
Assessment / Plan
Gen: NAD, AAOx3.
Eyes: EOMI, PERRLA, no scleral icterus.
Neck: supple.
CV: RRR, +S1/S2, no m/r/g.
Resp: CTAB, no rales, wheezes, or rhonchi.
Abd: +BS, soft, NT, ND
Skin: No rashes.
Neuro: CN 2-12 intact, non-focal.
Psych: Normal mood and affect.
Symptomatic anemia:
-likely due to chemotherapy (thrombocytopenia also noted). No evidence of bleeding but possible gastric mass can cause GI bleed. Pending repeat EGD.
-transfuse 2U pRBCs
-cont PPI BID
-GI c/s
Symptomatic Hypocalcemia:
-likely due to chemo and Vit D deficiency
-50,000IU Vit-D2 weekly x 6 weeks
-cont to trend and replete Ca PRN
Other problems:
Note, pt without any urinary symptoms and is afebrile. Leukocytosis could easily be reactive or due to G-CSF (will discuss if/when pt received G-CSF). At this time there is no reason to think the pt has a UTI. Stop Rocephin.
Prolonged QTc: recheck ECG in AM, currently on tele
Hyponatremia, mild
Hypokalemia, resolved
Hypophosphatemia: Replete with sodium phosphate
Thrombocytopenia, acute on chronic, trend
Transaminitis and elevated alkaline phosphatase due to malignancy, chronic, unchanged
h/o gastric ca (negative biopsy from stomach), positive bone marrow biopsy for gastric ca, s/p FOLFOX, c/s ONC
FULL/SCDs (cannot give heparin with Hb 6.7)
Total time spent on today's encounter was 50 minutes which included time spent in counseling the patient/family regarding diagnosis and treatment plan as listed above, goals of care, and symptom management. Case was discussed with nursing staff,
specialists, and care coordinators/case management. All labs and imaging personally reviewed by me. Remainder the time spent in detailed review of previous records, lab data, imaging, and other medical provider documentation.
Anticipated Discharge: > 48 hours
Subjective/Interval History
-
Date of Service: July 14, 2025
Pt still with nausea, tingling in fingertips, and tightness in jaw.
Objective Data
-
Labs:
Laboratory Results
07/14/25 07/14/25
05:15 09:31
WBC 13.6 H Pending
Hgb 6.7 L* Pending
Hct 19.2 L* Pending
Plt Count 59 L Pending
Sodium 132 L
Potassium 4.1
Chloride 107
Carbon Dioxide 18 L
BUN 5 L
Creatinine 0.4 L
Glucose 112 H
Calcium 5.5 L*
Vital Signs:
Vital Signs
Temp Pulse Resp BP Pulse Ox
98.2 F 105 16 119/60 97
07/14/25 08:07 07/14/25 08:07 07/14/25 08:07 07/14/25 08:07 07/14/25 08:07
I&O
07/13/25 07/14/25 07/15/25
06:59 06:59 06:59
Intake Total 480 / 480
Balance 480 / 480
[2025-07-14 10:27] LABS: Hematocrit 19.2 % (37.0-47.0); Hemoglobin 6.8 g/dL (12.0-16.0); Mean Corp Hgb Conc. 35.4 g/dL (33.0-37.0); Mean Corpuscular Volume 80.0 fL (81.0-99.0); Platelet Count 63 10^3/uL (130-400); Red Cell Dist. Width 19.7 % (11.5-14.5)
[2025-07-14] MEDS: SODIUM PHOSPHATE 255 MEQ IV (10:48)
[2025-07-14] MEDS: DRISDOL (VITAMIN D2) 50000 UNITS PO (11:09)
[2025-07-14 11:24] LABS: Folate 13.8 ng/ml (2.76-20); Vitamin B12 > 1000 pg/ml (239-931)
[2025-07-14 12:39] LABS: Blood Urea Nitrogen 4 mg/dl (7-17); Calcium 5.4 mg/dl (8.4-10.2); Carbon Dioxide 21 mmol/L (22-30); Chloride 105 mmol/L (98-107); Estimated Creatinine Clearance 90 ml/min; Glucose 134 mg/dl (70-99); Potassium 4.0 mmol/L (3.5-5.1); Sodium 131 mmol/L (135-145); eGFR > 60.00
--- NOTE | 2025-07-14 14:31 | CON.GI ---
Consultation
-
Date/Time Consultation Performed: 07/14/25
Performing Provider: Danie Almonte MD
Reason for Consultation: gastric CA, anemia
Medical History
Chief Complaint / HPI
Chief Complaint: weakness, fatigue
History of Present Illness:
The patient is a 60-year-old female with past medical history as noted with weakness and fatigue. She has a recent diagnosis of metastatic gastric cancer with diffuse bony mets. She had her first round of FOLFOX, and now presents to the emergency
room with weakness and fatigue. On admission she was found to be anemic with a hemoglobin of 6.7, platelets of 59, and calcium of 4.9, with ionized calcium at 0.6. She received calcium and overall feeling a bit better today. She throughout all of
this has had early satiety as her main symptom, and EGD initially from May 14 showed cavitating antral ulcer with deformity, the duodenum was not visualized, along with diffuse gastric erythema. Multiple biopsies from the ulceration as well as
randomly from the stomach were negative for malignancy and H. pylori, and were benign normal mucosa. She then had CT scan which showed diffuse bony mets and markedly elevated alkaline phosphatase with normal GGT, bone marrow biopsy showed complete
replacement of marrow with gastric carcinoma. We are planning an outpatient EGD today for repeat biopsies for hopeful tissue that was adequate enough to run for PD-L1 testing as this was not adequate on her bone marrow biopsy. She denies any
melena, hematemesis. She does have early satiety and nausea though has been tolerating Ensure and mostly liquid diet. She denies any chest pain or shortness of breath. She starting feeling a little bit better today.
Past Medical History
Past Medical History: Other (Recently diagnosed metastatic gastric cancer, heartburn)
Past Surgical History: None
Social History
Tobacco: Non-Smoker
Family History
Family History: Other (Mother with colon cancer)
Allergies / Home Medications
Allergy/AdvReac Type Severity Reaction Status Date / Time
No Known Allergies Allergy Verified 07/13/25 23:58
�Medication �Instructions �Recorded
sucralfate 1 gram tablet 1 g PO BID Gastrointestinal Issue 06/09/25
gabapentin 100 mg capsule 300 mg PO HS Pain 06/30/25
acetaminophen 500 mg tablet 1,000 mg PO DAILYPRN PRN pain 07/14/25
alprazolam 0.25 mg tablet 0.25 mg PO Q8HPRN PRN anxiety 07/14/25
calcium citrate 600 mg PO DAILY Supplement 07/14/25
omeprazole 40 mg capsule,delayed 40 mg PO BID Gastrointestinal Issue 07/14/25
release
ondansetron HCl 8 mg tablet 8 mg PO Q8HPRN PRN nausea 07/14/25
prochlorperazine maleate 10 mg 10 mg PO Q6HPRN PRN nausea 07/14/25
tablet
Review of Systems
-
All other systems: A 12 pt ROS was Negative except as stated above in HPI
Vital Signs
Temp Pulse Resp BP Pulse Ox
97.9 F 104 18 140/63 97
07/14/25 12:26 07/14/25 12:26 07/14/25 12:26 07/14/25 12:26 07/14/25 11:17
Physical Exam
Exam
General: NAD
HEENT: MMM, anicteric, no lymphadenopathy
Heart: Regular, no murmurs
Lungs: CTA bilaterally
Abdomen: normal bowel sounds, soft, no tenderness, no rebound or guarding, no masses, bruits or ascites
Extremeties: no edema
Skin: no rashes
Results
WBC 13.5 10^3/uL (4.8-10.8) H 07/14/25 10:08
Hgb 6.8 g/dL (12.0-16.0) L* 07/14/25 10:08
Hct 19.2 % (37.0-47.0) L* 07/14/25 10:08
MCV 80.0 fL (81.0-99.0) L 07/14/25 10:08
Plt Count 63 10^3/uL (130-400) L 07/14/25 10:08
Sodium 131 mmol/L (135-145) L 07/14/25 11:57
Potassium 4.0 mmol/L (3.5-5.1) 07/14/25 11:57
Chloride 105 mmol/L (98-107) 07/14/25 11:57
Carbon Dioxide 21 mmol/L (22-30) L 07/14/25 11:57
BUN 4 mg/dl (7-17) L 07/14/25 11:57
Creatinine 0.4 mg/dL (0.6-1.0) L 07/14/25 11:57
Calcium 5.4 mg/dl (8.4-10.2) L* 07/14/25 11:57
Total Bilirubin 1.0 mg/dl (0.2-1.3) 07/13/25 20:42
AST 53 U/L (14-36) H 07/13/25 20:42
ALT 36 U/L (0-35) H 07/13/25 20:42
Alkaline Phosphatase > 2400 U/L (38-126) H 07/13/25 20:42
Lipase 270 U/L (23-300) 07/13/25 20:42
Diagnostic Image Results:
Prior GI Procedures:
EGD:
Colonoscopy:
Assessment / Plan
-
1. Metastatic gastric cancer: With diffuse bony mets, now with weakness and fatigue after first round of FOLFOX, with profound hypocalcemia, as well as anemia and thrombocytopenia, most of which are likely related to her diffuse bony metastasis and
recent chemotherapy. She has not had any signs of gross bleeding and remains hemodynamically stable. I had a discussion previously with her oncologist as well as her and her daughter about repeating EGD for hopeful more tissue to run PDL1 testing
for immunotherapy. Will plan to do this now while she is an inpatient, as well as EUS at the same time for possible more tissue as previous EGD biopsies were negative. Will tentatively plan this for tomorrow pending her calcium and medical status.
Will continue PPI, supportive care and observation.
-
-
Thank you for consultation and allowing me to participate in the patient's care. Please call the preparation department supervisor GI physician during the after hours with any questions or concerns.
[2025-07-14] MEDS: TUMS CHEWABLE TABLET 400 MG PO (15:33)
[2025-07-14] MEDS: CALCIUM GLUCONATE 290 MG IV (15:34)
--- NOTE | 2025-07-14 18:35 | CM ---
CM following for discharge planning for Jodie.
She was admitted via ED late last night after recent infusion with FOLFOX with symptoms of weakness, dizziness and lightheadedness, and nausea. She is scheduled for a follow-up EGD tomorrow.
Therapy was not able to evaluate today due to low HGB and receiving a blood transfusion.
Jodie lives with her in a 2 story home with 1 entry step and the door rise.
Plan: CM to follow up to obtain additional information regarding patient's prior level of function.
[2025-07-14] MEDS: CARAFATE PO ×2 (20:26→21:14)
[2025-07-15] VITALS (8 sets, daily range): BP systolic 118–136; BP diastolic 56–67; PULSE 105; O2SAT 97
[2025-07-15 01:35] LABS: Blood Urea Nitrogen < 2 mg/dl (7-17); Calcium 5.2 mg/dl (8.4-10.2); Carbon Dioxide 20 mmol/L (22-30); Chloride 105 mmol/L (98-107); Estimated Creatinine Clearance 90 ml/min; Glucose 102 mg/dl (70-99); Potassium 3.5 mmol/L (3.5-5.1); Sodium 131 mmol/L (135-145); eGFR > 60.00
[2025-07-15] MEDS: CALCIUM GLUCONATE 290 MG IV ×2 (02:40→09:45)
[2025-07-15] MEDS: NSS 1000 IV ×3 (02:42→22:26)
[2025-07-15 05:03] LABS: Hematocrit 24.2 % (37.0-47.0); Hemoglobin 8.7 g/dL (12.0-16.0); Mean Corp Hgb Conc. 36.0 g/dL (33.0-37.0); Mean Corpuscular Volume 82.0 fL (81.0-99.0); Platelet Count 42 10^3/uL (130-400); Red Cell Dist. Width 18.9 % (11.5-14.5)
[2025-07-15 05:23] LABS: Blood Urea Nitrogen < 2 mg/dl (7-17); Calcium 6.0 mg/dl (8.4-10.2); Carbon Dioxide 21 mmol/L (22-30); Chloride 103 mmol/L (98-107); Estimated Creatinine Clearance 90 ml/min; Glucose 93 mg/dl (70-99); Potassium 3.5 mmol/L (3.5-5.1); Sodium 132 mmol/L (135-145); eGFR > 60.00
--- NOTE | 2025-07-15 07:17 | W.PN.GI.CBS2 ---
Today's Communication / Plan
-
Please see assessment and plan for details.
Assessment / Plan
-
1. Metastatic gastric cancer: With diffuse bony mets, now with weakness and fatigue after first round of FOLFOX, with profound hypocalcemia, as well as anemia and thrombocytopenia, most of which are likely related to her diffuse bony metastasis and
recent chemotherapy. She is continuing to improve symptom cardenas after transfusion and improvement in her calcium. Unfortunately her platelets are less than 50,000, and will need to hold on endoscopy/EUS/FNA today. She still has no signs of gross
bleeding. Will tentatively plan for procedures tomorrow for hopeful more tissue to run PDL1 stains. Continue PPI and supportive care.
Subjective
Subjective
Date of Service: July 15, 2025
Patient doing okay, starting to have more energy, no vomiting, no abdominal pain overnight. No fevers or chills. No signs of gross bleeding.
Objective
Data Reviewed
Laboratory Data:
Laboratory Results
07/15/25 04:13
07/15/25 04:13
Laboratory Results
Phosphorus 1.6 mg/dl (2.5-4.5) L 07/14/25 05:15
Magnesium 1.8 mg/dl (1.6-2.3) 07/14/25 05:15
Total Bilirubin 1.0 mg/dl (0.2-1.3) 07/13/25 20:42
AST 53 U/L (14-36) H 07/13/25 20:42
ALT 36 U/L (0-35) H 07/13/25 20:42
Alkaline Phosphatase > 2400 U/L (38-126) H 07/13/25 20:42
Lipase 270 U/L (23-300) 07/13/25 20:42
Vital Signs and I&O:
Vital Signs
Temp Pulse Resp BP Pulse Ox
98 F 104 19 118/64 98
07/15/25 04:21 07/15/25 04:21 07/15/25 04:21 07/15/25 04:21 07/15/25 04:21
I&O
07/14/25 07/15/25 07/16/25
06:59 06:59 06:59
Intake Total 1080 / 1080 2270 / 2270
Balance 1080 / 1080 2270 / 2270
Physical Exam
Physical Exam
General: NAD
Abdomen: normal bowel sounds, soft, no tenderness, no masses or bruits, no ascites
[2025-07-15] MEDS: CARAFATE 1 GRAM PO ×2 (08:10→20:50)
[2025-07-15] MEDS: OSCAL 500 + D 500 MG PO ×3 (08:10→22:21)
[2025-07-15] MEDS: ROCALTROL 0.5 MCG PO (08:10)
[2025-07-15] MEDS: PROTONIX 40 MG PO ×2 (08:10→20:50)
--- NOTE | 2025-07-15 09:20 | W.PN.HOSP.TC ---
Addendum entered and electronically signed by Nayan Walsh MD 07/15/25 12:56:
moderate protein calorie malnutrition
Original Note:
Today's Communication/Plan
-
see plan
Assessment / Plan
Assessment / Plan
Gen: NAD, AAOx3.
Eyes: EOMI, PERRLA, no scleral icterus.
Neck: supple.
CV: tachy, reg rhythm, +S1/S2, no m/r/g.
Resp: remains CTAB, no rales, wheezes, or rhonchi.
Abd: remains +BS, soft, NT, ND
Skin: No rashes.
Neuro: CN 2-12 intact, non-focal.
Psych: Normal mood and affect.
Symptomatic anemia:
-likely due to chemotherapy (thrombocytopenia also noted). No evidence of bleeding but possible gastric mass can cause GI bleed. Pending repeat EGD.
-s/p 2U pRBCs
-cont PPI BID
-GI following
-for EGD/EUS/FNA once plts improve to > 50K
Symptomatic Hypocalcemia:
-likely due to chemo and Vit D deficiency
-50,000IU Vit-D2 weekly x 6 weeks
-cont to trend and replete Ca PRN (4g IV Now)
Other problems:
Note, pt without any urinary symptoms and is afebrile. Leukocytosis could easily be reactive or due to G-CSF (will discuss if/when pt received G-CSF). At this time there is no reason to think the pt has a UTI. Stop Rocephin.
Prolonged QTc: recheck ECG in AM, currently on tele
Hyponatremia, mild
Hypokalemia, resolved
Hypophosphatemia
Thrombocytopenia, acute on chronic, worsening
Transaminitis and elevated alkaline phosphatase due to malignancy, chronic, unchanged
h/o gastric ca (negative biopsy from stomach), positive bone marrow biopsy for gastric ca, s/p FOLFOX, c/s ONC
FULL/SCDs (cannot give pharmacological anticoagulation with thrombocytopenia)
Anticipated Discharge: 24 - 48 hours
Subjective/Interval History
-
Date of Service: July 15, 2025
Patient states overall she feels improved from yesterday.
Objective Data
-
Labs:
Laboratory Results
07/15/25 07/15/25
01:07 04:13
WBC 11.3 H
Hgb 8.7 L D
Hct 24.2 L
Plt Count 42 L D
Sodium 131 L 132 L
Potassium 3.5 3.5
Chloride 105 103
Carbon Dioxide 20 L 21 L
BUN < 2 L < 2 L
Creatinine 0.4 L 0.4 L
Glucose 102 H 93
Calcium 5.2 L* 6.0 L*
Vital Signs:
Vital Signs
Temp Pulse Resp BP Pulse Ox
98.4 F 105 16 121/60 96
07/15/25 07:30 07/15/25 07:30 07/15/25 07:30 07/15/25 07:30 07/15/25 07:30
I&O
07/14/25 07/15/25 07/16/25
06:59 06:59 06:59
Intake Total 1080 / 1080 2270 / 2269
Balance 1080 / 1080 2270 / 2269
--- NOTE | 2025-07-15 10:44 | CM ---
CM following for discharge planning needs. Pt lives with her in a 2 story home with 1 entry step. HELP DESK REP she reports being (I) amb and adls, no DME. Patient drives in the community. No hx of SNF or VN.
Due to low platelets, endoscopy/EUS/FNA are being delayed.
Plan: Pt anticipates discharge to home with no needs. will transport home at discharge.
Watch for change in needs s/p endoscopy/EUS/FNA.
--- NOTE | 2025-07-15 12:01 | PN.CDI ---
CDI
- -
CDI:
Physician Documentation Request
Admit Date: 07/13/25 23:39
Dear Doctor Nico,
Please review the following and provide your response in the progress notes.
Clinical Indicators:
Pt admitted with Anemia/Hypocalcemia 2/2 to chemo and bony mets
Documented per nutrition consult 07/14, ' CBW: 144 lbs 3.2 oz BMI 26.4 overweight range (07/14), pts weight previous hospital visit listed as 159 lbs (06/07), reflective of a 9% weight loss in > 1 month significant. With > 7.5% weight loss in three
months and < 75% estimated needs > 1 month pt meets AND/ASPEN criteria for moderate protein calorie malnutrition of chronic illness Encouraged family to continue to bring in food from home as well as small frequent meals and snacks as tolerated.....'
Based on the above information and your assessment, which of the following most accurately represents the patient's nutritional status?
Moderate Protein Calorie Malnutrition
Other (please specify)
[place] Criteria ([employer] Hospitalist 2017)
2 or more criteria must be present for either
non severe or severe malnutrition
Note that the criteria differs related to the
presence of an acute or chronic illness
Acute Illness Chronic Illness
Energy Intake Non Severe: <75% for >7 days Non Severe: <75% for >1 month
Severe: <50% for >5 days Severe: <75% for >1 month
Weight Loss Non Severe: 1-2% over 1 week Non Severe: 5% over 1 month
5% over 1 month 7.5% over 3 months
7.5% over 3 months 10% over 6 months
1 year N/A 20% over 1 year
Severe: >2% over 1 week Severe: >5% over 1 month
>5% over 1 month >7.5% over 3 months
>7.5% over 3 months >10% over 6 months
1 year N/A >20% over 1 year
Body Fat Non Severe: Mild Decrease Non Severe: Mild Loss
Severe: Moderate Decrease Severe: Severe Loss
Muscle Mass Non Severe: Mild Decrease Non Severe: Mild Loss
Severe: Moderate Decrease Severe: Severe Loss
Fluid Accumulation Non Severe: Mild Accumulation Non Severe: Mild Accumulation
Severe: Moderate to severe Severe: Moderate to severe
accumulation accumulation
Reduced It Analyst Strength Non Severe: N/A Non Severe: N/A
Severe: Measurably reduced Severe: Measurably reduced
Use of terms such as suspected, likely, concern for, or probable (associated with a specific diagnosis that is being evaluated, monitored, or treated as if it exists) are acceptable and can be coded in the inpatient setting, when documented at the
time of discharge.
Thank you,
Erica Panda RN
CDI Specialist
[employer]
Please use your independent medical judgment in providing your response.
[2025-07-15] MEDS: KCL 40 MEQ PO (12:51)
--- NOTE | 2025-07-15 15:42 | W.PN.ONC ---
Today's Communication / Plan
-
Apparently our service is asked for repeat EGD in an attempt for more tissue. However, her platelet count has dropped down to 42,000 today. This may have to wait a few days and conceivably be done as an outpatient, assuming we can get control of
her hypocalcemia. Otherwise, hematologically intact. Tinnitus might be due to the oxaliplatin.
Impression
Impression
stage IV gastric cancer via bone marrow biopsy, no loss of mismatch repair deficiency on [employer]ent 360 or [employer]- PDL 1 not detected -EGD gastric bx May 2025 no malignancy -PET with stomach & bone uptake
s/p C1 FOLFOX 07/08, pegfilgrastim 07/10
s/p 1st dose of xgeva 07/08
AOCD/malignancy DONI started 07/10 - iron 144, IS 48. ferritin 984 -SPEP no M spike -acute on chronic anemia
pancytopenia 2/2 bone marrow involvement of malignancy, chemotherapy
healing fracture pubic ramus
hypocalcemia 2/2 xgeva
hypovitaminosis D
stable transaminitis
unclear etiology for elevated Ca27.29
Plan
Plan
follow bcx
stat CBC
transfuse Hgb <7 or as needed for sxs anemia
monitor for bleeding
check retic, B12, folate
replete calcium
f/u GI consult to consider repeat EGD
will ask path to added ER/OH/HER2 to IHC from BMBx
Subjective/Objective
Subjective/Objective
She remains weak. She is complaining of tinnitus that has come on over the last 3 to 4 days. Her appetite is fair. Examination is unchanged.
She continues to struggle with severe hypocalcemia. IV calcium was given today.
Vital Signs:
Vital Signs
Temp Pulse Resp BP Pulse Ox
98.3 F 104 16 132/65 95
07/15/25 11:22 07/15/25 11:22 07/15/25 11:22 07/15/25 11:22 07/15/25 11:22
Lab Results:
Laboratory Data
WBC 11.3 10^3/uL (4.8-10.8) H 07/15/25 04:13
Hgb 8.7 g/dL (12.0-16.0) L D 07/15/25 04:13
Plt Count 42 10^3/uL (130-400) L D 07/15/25 04:13
eGFR > 60.00 07/15/25 04:13
--- NOTE | 2025-07-15 15:49 | PTCARENOTE ---
pt c/o weakness, feeling like head and ears are clogged, tinnitus that started 3-4 day ago, appetite fair, vss, Dr. Walsh updated today, will continue to monitor.
[2025-07-15] MEDS: TYLENOL 650 MG PO (17:46)
--- NOTE | 2025-07-15 19:22 | PTCARENOTE ---
pt asleep after Tylenol administered for mild pain (see MAR), will continue to monitor.
[2025-07-15] MEDS: NEURONTIN 300 MG PO (22:21)
[2025-07-16] VITALS (13 sets, daily range): BP systolic 121–133; BP diastolic 52–78; BMI 27.6
[2025-07-16 05:29] LABS: Hematocrit 25.1 % (37.0-47.0); Hemoglobin 8.8 g/dL (12.0-16.0); Mean Corp Hgb Conc. 35.1 g/dL (33.0-37.0); Mean Corpuscular Volume 81.8 fL (81.0-99.0); Platelet Count 48 10^3/uL (130-400); Red Cell Dist. Width 19.8 % (11.5-14.5)
[2025-07-16 05:56] LABS: Blood Urea Nitrogen < 2 mg/dl (7-17); Calcium 5.3 mg/dl (8.4-10.2); Carbon Dioxide 22 mmol/L (22-30); Chloride 107 mmol/L (98-107); Estimated Creatinine Clearance 90 ml/min; Glucose 103 mg/dl (70-99); Potassium 3.6 mmol/L (3.5-5.1); Sodium 134 mmol/L (135-145); eGFR > 60.00
--- NOTE | 2025-07-16 06:22 | W.PN.UPDATE ---
Update Note
Progress Note Update
Ca 5.3 will order 4mg Ca gluconate IVPB now
[2025-07-16] MEDS: CALCIUM GLUCONATE 290 MG IV ×2 (06:45→09:32)
--- NOTE | 2025-07-16 07:08 | W.PN.UPDATE ---
Update Note
Progress Note Update
Patient feeling okay, reviewed labs, platelets up to 48,000. I discussed with Dr. Osman yesterday, we will proceed with a EGD with biopsy, as well as EUS and possible FNA. Will give platelets prior to procedure.
--- NOTE | 2025-07-16 07:58 | W.PN.ONC2 ---
Today's Communication / Plan
-
EGD following platelet transfusion. Continue to replace calcium.
This is one of the worst cases of hypocalcemia I have seen following 1 dose of Xgeva.
Impression
Impression
stage IV gastric cancer via bone marrow biopsy, no loss of mismatch repair deficiency on [employer] 360 or [employer]- PDL 1 not detected -EGD gastric bx May 2025 no malignancy -PET with stomach & bone uptake
s/p C1 FOLFOX 07/08, pegfilgrastim 07/10
s/p 1st dose of xgeva 07/08
AOCD/malignancy DONI started 07/10 - iron 144, IS 48. ferritin 984 -SPEP no M spike -acute on chronic anemia
pancytopenia 2/2 bone marrow involvement of malignancy, chemotherapy
healing fracture pubic ramus
hypocalcemia /2 xgeva
hypovitaminosis D
stable transaminitis
unclear etiology for elevated Ca27.29
Plan
Plan
Repeat EGD scheduled for later today following platelet transfusion as platelet count <50,000
will ask path to added ER/MI/HER2 to IHC from [facility]
Continue calcium replenishment.
First and only dose of Xgeva given 07/08. This is one of the worst cases of iatrogenic hypocalcemia I have seen related to that drug.
Severe Refractory Hypocalcemia Caused by Denosumab
https://pmc.ncbi.nlm.nih.gov/articles/JAZ15498436/
Subjective/Objective
Chief Complaint
ACS hematology oncology follow-up
Subjective
Resting comfortably. No complaints. For EGD later today.
Vital Signs:
Vital Signs
Temp Pulse Resp BP Pulse Ox
98.7 F 101 20 127/60 95
07/16/25 03:30 07/16/25 03:30 07/16/25 03:30 07/16/25 03:30 07/16/25 03:30
Lab Results:
Laboratory Data
WBC 9.3 10^3/uL (4.8-10.8) 07/16/25 05:03
Hgb 8.8 g/dL (12.0-16.0) L 07/16/25 05:03
Plt Count 48 10^3/uL (130-400) L 07/16/25 05:03
eGFR > 60.00 07/16/25 05:03
Physical Exam
HEENT: No Jaundice
Cardiology: S1 and S2
Pulmonary: Clear
--- NOTE | 2025-07-16 08:13 | W.PN.HOSP.TC ---
Today's Communication/Plan
-
see plan
Assessment / Plan
Assessment / Plan
Gen: NAD, AAOx3.
Eyes: EOMI, PERRLA, no scleral icterus.
Neck: supple.
CV: remains tachy, reg rhythm, +S1/S2, no m/r/g.
Resp: continues to remain CTAB, no rales, wheezes, or rhonchi.
Abd: continues to remain +BS, soft, NT, ND
Skin: No rashes.
Neuro: CN 2-12 intact, non-focal.
Psych: Normal mood and affect.
Symptomatic anemia:
-likely due to chemotherapy (thrombocytopenia also noted). No evidence of bleeding but possible gastric mass can cause GI bleed. Pending repeat EGD.
-s/p 2U pRBCs
-cont PPI BID
-GI following
-for EGD/EUS/FNA once plts improve to > 50K
Symptomatic Hypocalcemia:
-likely due to chemo and Vit D deficiency
-50,000IU Vit-D2 weekly x 6 weeks
-4g IV Ca x 2 now, check Ca at 1600
Hearing loss and B/L ear congestion:
-c/s ENT, Dr. Beatty notified over [facility] at 0909 today
Other problems:
Asymptomatic bacteriuria
Prolonged QTc: recheck ECG, currently on tele
Hyponatremia, mild
Hypokalemia, resolved
Hypophosphatemia
Thrombocytopenia, acute on chronic, worsening
Transaminitis and elevated alkaline phosphatase due to malignancy, chronic, unchanged
h/o gastric ca (negative biopsy from stomach), positive bone marrow biopsy for gastric ca, s/p FOLFOX, ONC following
Discussed with ONC and ENT
FULL/SCDs (cannot give pharmacological anticoagulation with thrombocytopenia)
Anticipated Discharge: 24 - 48 hours
Subjective/Interval History
-
Date of Service: July 16, 2025
c/o tight jaw and hearing loss and B/L ear congestion
Objective Data
-
Labs:
Laboratory Results
07/16/25
05:03
WBC 9.3
Hgb 8.8 L
Hct 25.1 L
Plt Count 48 L
Sodium 134 L
Potassium 3.6
Chloride 107
Carbon Dioxide 22
BUN < 2 L
Creatinine 0.3 L
Glucose 103 H
Calcium 5.3 L*
Vital Signs:
Vital Signs
Temp Pulse Resp BP Pulse Ox
98.7 F 101 20 127/60 95
07/16/25 03:30 07/16/25 03:30 07/16/25 03:30 07/16/25 03:30 07/16/25 03:30
I&O
07/15/25 07/16/25 07/17/25
06:59 06:59 06:59
Intake Total 2270 / 2270 2290 / 2290
Balance 2270 / 2270 2290 / 2290
[2025-07-16] MEDS: PROTONIX 40 MG PO ×2 (09:21→21:07)
[2025-07-16] MEDS: CARAFATE 1 GRAM PO ×2 (09:21→21:07)
[2025-07-16] MEDS: ROCALTROL 0.5 MCG PO (09:23)
[2025-07-16] MEDS: OSCAL 500 + D 500 MG PO ×3 (09:23→21:07)
--- NOTE | 2025-07-16 12:55 | CON.MD ---
Consultation - Medical
-
This 60-year-old woman is currently hospitalized after receiving chemotherapy with medication similar to cisplatin which is known to cause hearing loss. She feels that the ears are plugged. She is not having pain. She has had cerumen impactions
in the past. She has no drainage from the ears. I was asked to see her regarding this plugged sensation in her ears.
Past medical history:
Allergies: No known drug allergies
Gastric cancer, bone cancer, thrombocytopenia, acute hypokalemia, anemia, chemotherapy adverse reaction, hypocalcemia
Home medications: Acetaminophen 1000 mg p.o. as needed, alprazolam 0.25 mg p.o. every 8 hours as needed anxiety, calcium citrate 600 mg p.o. daily, gabapentin 300 mg p.o. nightly, omeprazole 40 mg p.o. twice daily, ondansetron 8 mg p.o. every 8
hours as needed nausea, prochlorperazine maleate 10 mg p.o. every 6 hours as needed nausea vomiting, sucralfate 1 g p.o. twice daily
Hospitalizations: Patient is currently hospitalized for adverse reaction after chemotherapy
Family history: Asked and is noncontributory for this problem
Review of systems: Positive for plugged sensation and ears bilaterally, negative for pain, negative for drainage from the ear, positive for history of cerumen impactions
Physical examination:
Head: Atraumatic and normocephalic
Eyes: Extraocular movements are intact and pupils are equal and reactive to light
nose: Normal
Oral cavity oropharynx: Normal
Neck: Normal
Salivary glands: Normal
Gland: Normal
Cranial nerves II through XII: Normal
Voice: Normal
Ears: Cerumen impaction was seen and removed on the right side. Patient tolerated this well. There is no infection in the ear canal or the middle ear. There could possibly be fluid but I cannot tell for sure. Left side is also without signs of
infection but possibly has fluid.
Impression: This patient is feeling a plugged sensation in her ears. She thinks the hearing may be down. Wax was removed from her right ear which did not solve the problem.
Plan: The patient needs to come into the office to have an audiogram and tympanogram performed. That can only be performed in the office. I spoke to her daughter about this. They will call to make an appointment in the office prior to her next
round of chemotherapy. We will get her into the office as soon as she can come over.
Consultation
-
Date/Time Consultation Requested: 07/16/25 10am
Date/Time Consultation Performed: 07/16/25 12 noon
Requesting Provider: Dr. Walsh
Performing Provider: Dr. Beatty
Reason for Consultation: Ears feel plugged
[2025-07-16 17:49] LABS: Calcium 5.8 mg/dl (8.4-10.2)
--- NOTE | 2025-07-16 17:54 | CM ---
CM continues to follow for discharge planning needs. Pt participated with therapy today and ambulated 150ft twice with no device.
Anticipate pt will return home with her ; no identified needs.
[2025-07-16] MEDS: CALCIUM GLUCONATE 100 IV (18:34)
[2025-07-16] MEDS: OCEAN, SALINE MIST 2 SPRAYS NASAL (18:34)
[2025-07-16] MEDS: NEURONTIN 300 MG PO (21:07)
[2025-07-17 03:00] VITALS: BP 120/58
[2025-07-17 05:48] LABS: Hematocrit 24.0 % (37.0-47.0); Hemoglobin 8.5 g/dL (12.0-16.0); Mean Corp Hgb Conc. 35.4 g/dL (33.0-37.0); Mean Corpuscular Volume 81.4 fL (81.0-99.0); Platelet Count 53 10^3/uL (130-400); Red Cell Dist. Width 19.8 % (11.5-14.5)
[2025-07-17 06:06] LABS: Blood Urea Nitrogen < 2 mg/dl (7-17); Calcium 5.3 mg/dl (8.4-10.2); Carbon Dioxide 21 mmol/L (22-30); Chloride 103 mmol/L (98-107); Estimated Creatinine Clearance 92 ml/min; Glucose 99 mg/dl (70-99); Potassium 3.1 mmol/L (3.5-5.1); Sodium 131 mmol/L (135-145); eGFR > 60.00
--- NOTE | 2025-07-17 06:23 | W.PN.GI.CBS2 ---
Today's Communication / Plan
-
Please see assessment and plan for details.
Assessment / Plan
-
1. Metastatic gastric cancer: With diffuse bony mets, now with weakness and fatigue after first round of FOLFOX, with profound hypocalcemia, as well as anemia and thrombocytopenia, most of which are likely related to her diffuse bony metastasis and
recent chemotherapy. She is continuing to improve symptom cardenas after transfusion and improvement in her calcium. Continue PPI, dietary modifications and supportive care. Will await repeat biopsies, hopefully more tissue for analysis for PDL1 as
requested by Dr. Pepper.
We will sign off for now, please call back with any further questions.
Subjective
Subjective
Date of Service: July 17, 2025
Patient feeling well overnight, no abdominal pain or vomiting after EGD yesterday. No fevers or chills.
Objective
Data Reviewed
Laboratory Data:
Laboratory Results
07/17/25 05:06
07/17/25 05:06
Laboratory Results
Phosphorus 1.6 mg/dl (2.5-4.5) L 07/14/25 05:15
Magnesium 1.8 mg/dl (1.6-2.3) 07/14/25 05:15
Total Bilirubin 1.0 mg/dl (0.2-1.3) 07/13/25 20:42
AST 53 U/L (14-36) H 07/13/25 20:42
ALT 36 U/L (0-35) H 07/13/25 20:42
Alkaline Phosphatase > 2400 U/L (38-126) H 07/13/25 20:42
Lipase 270 U/L (23-300) 07/13/25 20:42
Vital Signs and I&O:
Vital Signs
Temp Pulse Resp BP Pulse Ox
98.6 F 112 17 120/58 95
07/17/25 03:00 07/17/25 03:00 07/17/25 03:00 07/17/25 03:00 07/17/25 03:00
I&O
07/15/25 07/16/25 07/17/25
06:59 06:59 06:59
Intake Total 2270 / 2270 2290 / 2290 259 / 259
Balance 2270 / 2270 2290 / 2290 259 / 259
Physical Exam
Physical Exam
General: NAD
Abdomen: normal bowel sounds, soft, no tenderness, no masses or bruits, no ascites
--- NOTE | 2025-07-17 07:30 | W.PN.HOSP.TC ---
Today's Communication/Plan
-
see plan
Assessment / Plan
Assessment / Plan
Gen: NAD, AAOx3.
Eyes: EOMI, PERRLA, no scleral icterus.
Neck: supple.
CV: continues to remain tachy, reg rhythm, +S1/S2, no m/r/g.
Resp: CTAB anteriorly, no rales, wheezes, or rhonchi.
Abd: +BS, soft, NT, ND
Skin: No rashes.
Neuro: remains CN 2-12 intact, non-focal.
Psych: Normal mood and affect.
EGD/EUS with FNA 07/16:
- Normal esophagus.
- Congestive gastropathy.
- Thick gastric folds resembling linitis plastica. Biopsied.
- Gastric ulcer. Biopsied.
- Normal duodenal bulb, first portion of the duodenum and second
portion of the duodenum.
- Wall thickening was seen in the lesser curve of the stomach and
in the antrum of the stomach. The thickening appeared to be
primarily within the submucosa (Layer 3) and muscularis propria
(Layer 4). Fine needle aspiration performed.
- Pancreatic parenchymal abnormalities consisting of diffusely
increased echogenicity were noted in the pancreatic body.
Symptomatic anemia:
-likely due to chemotherapy (thrombocytopenia also noted). No evidence of bleeding but possible gastric mass can cause GI bleed. Pending repeat EGD.
-Hb stable s/p 2U pRBCs
-cont PPI BID
-GI following
-s/p EGD/EUS/FNA as above, follow path
Symptomatic Hypocalcemia:
-likely due to chemo and Vit D deficiency
-50,000IU Vit-D2 weekly x 6 weeks
-4g IV Ca x 3 now, check Ca again later today
-c/s renal for assistance
Hearing loss and B/L ear congestion:
-seen by ENT, wax removed from R ear
-outpt f/u for audiogram/tympanogram
Other problems:
Asymptomatic bacteriuria
Leukocytosis, likely reactive, resolved
Prolonged QTc: improved to 469ms on recent ECG
Hyponatremia, mild
Hypokalemia, repleted
Hypophosphatemia
Thrombocytopenia, acute on chronic, now stable
Transaminitis and elevated alkaline phosphatase due to malignancy, chronic, unchanged
h/o gastric CA (negative biopsy from stomach), positive bone marrow biopsy for gastric ca, s/p FOLFOX, ONC saw in c/s
FULL/SCDs (cannot give pharmacological anticoagulation with thrombocytopenia and anemia requiring 2U pRBCs), also encourage ambulation
Anticipated Discharge: 24 - 48 hours
Subjective/Interval History
-
Date of Service: July 17, 2025
No new complaints.
Objective Data
-
Labs:
Laboratory Results
07/17/25
05:06
WBC 7.5
Hgb 8.5 L
Hct 24.0 L
Plt Count 53 L
Sodium 131 L
Potassium 3.1 L
Chloride 103
Carbon Dioxide 21 L
BUN < 2 L
Creatinine 0.3 L
Glucose 99
Calcium 5.3 L*
Vital Signs:
Vital Signs
Temp Pulse Resp BP Pulse Ox
98.6 F 112 17 120/58 95
07/17/25 03:00 07/17/25 03:00 07/17/25 03:00 07/17/25 03:00 07/17/25 03:00
I&O
07/16/25 07/17/25 07/18/25
06:59 06:59 06:59
Intake Total 2290 / 2290 979 / 979
Balance 2290 / 2290 979 / 979
[2025-07-17 07:56] VITALS: BP 128/68
[2025-07-17] MEDS: ROCALTROL 0.5 MCG PO ×2 (08:03→21:15)
[2025-07-17] MEDS: CARAFATE 1 GRAM PO ×2 (08:03→21:14)
[2025-07-17] MEDS: OSCAL 500 + D 500 MG PO (08:03)
[2025-07-17] MEDS: PROTONIX 40 MG PO ×2 (08:03→21:14)
[2025-07-17] MEDS: CALCIUM GLUCONATE 290 MG IV ×3 (08:04→15:48)
--- NOTE | 2025-07-17 09:28 | W.CON.NEPH ---
Consultation
-
Date/Time Consultation Requested: 07/17/25 3394
Date/Time Consultation Performed: 07/17/25 1030
Requesting Provider: Nayan Barajas
Performing Provider: Gela Mendez
Reason for Consultation: Hypocalcemia
Medical History
-
Chief Complaint: Weakness and fatigue
History of Present Illness:
60-year-old female who has a recent diagnosis of metastatic gastric cancer with BM biopsy, stomach biopsy was neg in May but PET uptake in stomach and bones who received C1 of FOLFOX, Pefilgrastim, first dose of Xgeva on 07/08. She presented to ER
on 07/13 with weakness dizziness and lightheadedness.
Patient reports perioral paresthesias, numbness and tingling in the fingertips, generalized weakness, nausea without vomiting. Denies any diarrhea. Denies any direct bony pain. Denies having fevers or chills.
Reports poor intake over days. On admit her Calcium was down to 4.9 with ionized calcium of 0.64. She has an elevated alk phos to 2400. She has high PTH and high vit D1,25. with low vit D 25. She has received multiple IV calcium infusions but
still levels have not normalized johnny remains at 5 range hence nephrology consulted. She also has YSLETA DEL SUR and ringing in ears saw ENT too, wax removed need out pt ENT for audiogram.
She reports her symptoms did not improve, she is having hard time to eat with poor appetite and diarrhea from protein drinks. EGD on 07/16 shows linitis plastica.
Past Medical History
Met gastric cancer
GERD
Social History
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 denies tobacco, ETOH, or recreational drugs
Tobacco: Non-Smoker
Alcohol: None
Drug: None
Personal:
Living: With Family
Family History
father lung cancer, mother colon cancer stage I
no kidney disease
Family History: Not Pertinent
Allergies / Home Medications
Allergy/AdvReac Type Severity Reaction Status Date / Time
No Known Allergies Allergy Verified 07/13/25 23:58
�Medication �Instructions �Recorded �Confirmed �Type
sucralfate 1 gram tablet 1 g PO BID Gastrointestinal Issue 06/09/25 07/14/25 History
gabapentin 100 mg capsule 300 mg PO HS Pain 06/30/25 07/14/25 History
acetaminophen 500 mg tablet 1,000 mg PO DAILYPRN PRN pain 07/14/25 07/14/25 History
alprazolam 0.25 mg tablet 0.25 mg PO Q8HPRN PRN anxiety 07/14/25 07/14/25 History
calcium citrate 600 mg PO DAILY Supplement 07/14/25 07/14/25 History
omeprazole 40 mg capsule,delayed 40 mg PO BID Gastrointestinal Issue 07/14/25 07/14/25 History
release
ondansetron HCl 8 mg tablet 8 mg PO Q8HPRN PRN nausea 07/14/25 07/14/25 History
prochlorperazine maleate 10 mg 10 mg PO Q6HPRN PRN nausea 07/14/25 07/14/25 History
tablet
Review of Systems
-
All other systems: Negative unless noted
Physical Exam
Vital Signs
Vital Signs
Temp Pulse Resp BP Pulse Ox
98.1 F 117 18 128/68 95
07/17/25 07:56 07/17/25 07:56 07/17/25 07:56 07/17/25 07:56 07/17/25 07:56
Lab Results
WBC 7.5 10^3/uL (4.8-10.8) 07/17/25 05:06
RBC 2.95 10^6/uL (4.20-5.40) L 07/17/25 05:06
Hgb 8.5 g/dL (12.0-16.0) L 07/17/25 05:06
Hct 24.0 % (37.0-47.0) L 07/17/25 05:06
Plt Count 53 10^3/uL (130-400) L 07/17/25 05:06
Sodium 131 mmol/L (135-145) L 07/17/25 05:06
Potassium 3.1 mmol/L (3.5-5.1) L 07/17/25 05:06
Chloride 103 mmol/L (98-107) 07/17/25 05:06
Carbon Dioxide 21 mmol/L (22-30) L 07/17/25 05:06
BUN < 2 mg/dl (7-17) L 07/17/25 05:06
Creatinine 0.3 mg/dL (0.6-1.0) L 07/17/25 05:06
eGFR > 60.00 07/17/25 05:06
Glucose 99 mg/dl (70-99) 07/17/25 05:06
Calcium 5.3 mg/dl (8.4-10.2) L* 07/17/25 05:06
Phosphorus 1.6 mg/dl (2.5-4.5) L 07/14/25 05:15
Albumin 3.8 g/dl (3.5-5.0) 07/13/25 20:42
Physical Exam
General: Awake, Alert, Oriented, AOx3, No Distress and Nontoxic
HEENT: EOMI, Anicteric, Conjunctivae Clear and Neck Supple
Respiratory: Clear, Normal Excursion and Nonlabored Respirations
Cardiac: S1/S2 and Regular Rate/Rhythm (tachy)
Breast: Deferred by me
Abdomen: Soft, Nontender and Nondistended
Musculoskeletal: No Cyanosis and No Edema
Skin: No Rash
Neuro: Nonfocal/Grossly Intact
Psych: Mood/afflect pleasant, Insight/judgement good and Appropriate
Data Reviewed
-
Labs: Labs Reviewed by me, Discussed with Patient and Discussed with Family
Assessment/Plan
-
IMP:
Symptomatic anemia-likely due to chemotherapy
Symptomatic Hypocalcemia
Hearing loss and B/L ear congestion
Prolonged QTc
Hyponatremia, mild
Hypokalemia
Hypophosphatemia
Thrombocytopenia, acute on chronic
Transaminitis and elevated alkaline phosphatase due to malignancy
h/o gastric CA (negative biopsy from stomach), positive bone marrow biopsy for gastric ca, s/p FOLFOX, Xgeva on 07/08
PLan;
A/w symptomatic anemia and hypocalcemia
Hypocalcemia-seem refractory, normal in Oct prior chemo
suspect possible this is related to Xgeva mostly, also FOLFOX had tendency to do it too
PTH is high appropriately at 115
vit D 25 is low 19 but vit D 1,25 is high 315 -ok for calcitriol and vit D2 for now
will increase po calcium to 1000mg TID, possibly need more titration
check urine calcium excretion to r/o wasting
magnesium was ok but has hypophosphatemia-recheck labs
hyponatremia could be multifactorial poor intake and malig-stable
replace k
Bp stable but tachy-normal TSH
need to improve protein/solute intake -try protein pudding as she has runs with shakes
reviewed with pt and daughter on phone
--- NOTE | 2025-07-17 10:54 | W.PN.ONC ---
Today's Communication / Plan
-
Completed EGD cytology pending
Hemoglobin stable and platelets increased to greater than 50K
Continued severe hypocalcemia without clinical tetany continue replete
Impression
Impression
stage IV gastric cancer via bone marrow biopsy, no loss of mismatch repair deficiency on [employer] 360 or [employer]- PDL 1 not detected -EGD gastric bx May 2025 no malignancy -PET with stomach & bone uptake
s/p C1 FOLFOX 07/08, pegfilgrastim 07/10
s/p 1st dose of xgeva 07/08
AOCD/malignancy DONI started 07/10 - iron 144, IS 48. ferritin 984 -SPEP no M spike -acute on chronic anemia
pancytopenia 2/2 bone marrow involvement of malignancy, chemotherapy
healing fracture pubic ramus
Iatrogenic hypocalcemia
hypovitaminosis D
stable transaminitis
unclear etiology for elevated Ca27.29
Plan
Plan
Repeat EGD scheduled for later today following platelet transfusion as platelet count <50,000
will ask path to added ER/GA/HER2 to IHC from [facility]
Continue calcium replenishment.
First and only dose of Xgeva given 07/08. This is one of the worst cases of iatrogenic hypocalcemia I have seen related to that drug.
Severe Refractory Hypocalcemia Caused by Denosumab
https://pmc.ncbi.nlm.nih.gov/articles/AKD72302927/
Subjective/Objective
Subjective/Objective
Patient without new complaints. Feels less fatigued
Vital Signs:
Vital Signs
Temp Pulse Resp BP Pulse Ox
98.1 F 117 18 128/68 95
07/17/25 07:56 07/17/25 07:56 07/17/25 07:56 07/17/25 07:56 07/17/25 07:56
Physical exam unchanged
Lab Results:
Laboratory Data
WBC 7.5 10^3/uL (4.8-10.8) 07/17/25 05:06
Hgb 8.5 g/dL (12.0-16.0) L 07/17/25 05:06
Plt Count 53 10^3/uL (130-400) L 07/17/25 05:06
eGFR > 60.00 07/17/25 05:06
[2025-07-17 10:59] VITALS: BP 124/64
[2025-07-17] MEDS: KCL 40 MEQ PO (11:00)
[2025-07-17] MEDS: POTASSIUM PHOSPHATE 259.0909 MEQ IV (11:39)
[2025-07-17] MEDS: NEUTRA-PHOS POWDER PACKET 250 MG PO ×3 (12:23→21:15)
[2025-07-17 15:22] VITALS: BP 126/67
--- NOTE | 2025-07-17 15:35 | CM ---
CM continues to follow for discharge planning needs. Pt refused PT today. Plan remains discharge to home with no identified needs.
--- NOTE | 2025-07-17 15:57 | CON.MD ---
Consultation - Medical
-
Jodie is a 60 y.o. WF diagnosed with metastatic gastric cancer s/p C1 FOLFOX 07/08, pegfilgrastim 07/10 and first dose of Xgeva on 07/08. She has developed numbness, tingling and general malaise and is noted to have calcium in the upper 5 range.
-Chvostek's on exam. PTH high as expected, 25 D low and has been started on ergocalciferol as well as calcium gluconate IV as needed. Suspect denosumab-induced hypocalcemia. Have seen many cases of this before and don't believe it is rare as the
literature would suggest. Unfortunately, it takes sometimes many weeks to resolve. Complicating matters is likely to be malabsorption of the vitamin D and oral calcium used to treat this with underlying malignancy. Although this only offers a
temporary solution, would consider starting a calcium gluconate gtt (10g calcium gluconate in 1 L NS and run at 30-50 cc/hr). This will give her temporary relief, as her vitamin D and oral calcium are adjusted. (although daughter states not taking
POs). It is at least not known how much of this she is able to absorb, endoscopy pending. There is a calcitriol liquid available, if needed. Agree with 1 gram Ca orally tid, and 1 mcg rocaltrol will take a 2-3 days to take effect and can be further
titrated if needed. She may require a higher dose, and dose can be titrated when gtt is weaned. Please call with questions.
[2025-07-17] MEDS: OSCAL CAL 500 1000 MG PO ×2 (16:43→23:34)
[2025-07-17] MEDS: CALCIUM GLUCONATE 10% INJECTION 280 MG IV (17:44)
[2025-07-17 17:46] LABS: Calcium 6.5 mg/dl (8.4-10.2)
[2025-07-17 19:15] VITALS: BP 123/58
[2025-07-17] MEDS: NEURONTIN 300 MG PO (21:15)
[2025-07-17 23:25] VITALS: BP 130/74
[2025-07-17] MEDS: TYLENOL 650 MG PO (23:40)
--- NOTE | 2025-07-18 03:28 | PTCARENOTE ---
Reggie Vegas RN concerned about Pt's IV Calcium Gluconate order. RN unable to scan new bag to hang. RN contacted Pharmacy. RN spoke to Eboni in Pharmacy regarding concern. Pharmacist explained to RN she will follow up with IT. Pharmacist advised RN
to hang new bag of IV Calcium Gluconate per order (30 mls/hr).
[2025-07-18 03:41] VITALS: BP 113/48
[2025-07-18] MEDS: OSCAL CAL 500 1000 MG PO ×3 (06:19→23:13)
[2025-07-18 06:22] LABS: Hematocrit 22.4 % (37.0-47.0); Hemoglobin 7.9 g/dL (12.0-16.0); Mean Corp Hgb Conc. 35.3 g/dL (33.0-37.0); Mean Corpuscular Volume 82.4 fL (81.0-99.0); Platelet Count 45 10^3/uL (130-400); Red Cell Dist. Width 20.2 % (11.5-14.5)
[2025-07-18 06:25] LABS: Blood Urea Nitrogen < 2 mg/dl (7-17); Calcium 5.8 mg/dl (8.4-10.2); Carbon Dioxide 23 mmol/L (22-30); Chloride 104 mmol/L (98-107); Estimated Creatinine Clearance 92 ml/min; Glucose 104 mg/dl (70-99); Potassium 3.7 mmol/L (3.5-5.1); Sodium 132 mmol/L (135-145); eGFR > 60.00
[2025-07-18 07:49] VITALS: BP 112/57
--- NOTE | 2025-07-18 08:44 | W.PN.HOSP.TC ---
Today's Communication/Plan
-
see plan
Assessment / Plan
Assessment / Plan
Gen: NAD, AAOx3.
Eyes: EOMI, PERRLA, no scleral icterus.
Neck: supple.
CV: tachy, reg rhythm, +S1/S2, no m/r/g.
Resp: remains CTAB anteriorly, no rales, wheezes, or rhonchi.
Skin: No rashes.
Neuro: continues to remain CN 2-12 intact, non-focal.
Psych: Normal mood and affect.
EGD/EUS with FNA 07/16:
- Normal esophagus.
- Congestive gastropathy.
- Thick gastric folds resembling linitis plastica. Biopsied.
- Gastric ulcer. Biopsied.
- Normal duodenal bulb, first portion of the duodenum and second
portion of the duodenum.
- Wall thickening was seen in the lesser curve of the stomach and
in the antrum of the stomach. The thickening appeared to be
primarily within the submucosa (Layer 3) and muscularis propria
(Layer 4). Fine needle aspiration performed.
- Pancreatic parenchymal abnormalities consisting of diffusely
increased echogenicity were noted in the pancreatic body.
Symptomatic Hypocalcemia:
-likely due to Xgeva and Vit D deficiency
-50,000IU Vit-D2 weekly x 6 weeks
-s/p multiple doses of IV Ca, now on calcium infusion as per endocrinology
-renal also following
Symptomatic anemia:
-likely due to chemotherapy (thrombocytopenia also noted)
-Hb stable s/p 2U pRBCs
-cont PPI BID
-GI following
-s/p EGD/EUS/FNA as above, follow path
Hearing loss and B/L ear congestion:
-seen by ENT, wax removed from R ear
-outpt f/u for audiogram/tympanogram
Other problems:
Asymptomatic bacteriuria
Leukocytosis, likely reactive, resolved
Prolonged QTc: improved to 469ms on recent ECG
Hyponatremia, mild
Hypokalemia, resolved
Hypophosphatemia
Thrombocytopenia, acute on chronic, trend
Transaminitis and elevated alkaline phosphatase due to malignancy, chronic, unchanged
h/o gastric CA (negative biopsy from stomach), positive bone marrow biopsy for gastric ca, s/p FOLFOX, ONC following
Discussed with endocrine and oncology
FULL/SCDs (cannot give pharmacological anticoagulation with thrombocytopenia and anemia requiring 2U pRBCs), also encourage ambulation
Anticipated Discharge: > 48 hours
Subjective/Interval History
-
Date of Service: July 18, 2025
No new complaints.
Objective Data
-
Labs:
Laboratory Results
07/18/25
05:25
WBC 8.1
Hgb 7.9 L
Hct 22.4 L
Plt Count 45 L
Sodium 132 L
Potassium 3.7
Chloride 104
Carbon Dioxide 23
BUN < 2 L
Creatinine 0.3 L
Glucose 104 H
Calcium 5.8 L*
Vital Signs:
Vital Signs
Temp Pulse Resp BP Pulse Ox
98.8 F 108 14 112/57 97
07/18/25 07:49 07/18/25 07:49 07/18/25 07:49 07/18/25 07:49 07/18/25 07:49
I&O
07/17/25 07/18/25 07/19/25
06:59 06:59 06:59
Intake Total 979 / 979 1445 / 1445
Output Total 1000 / 1000
Balance 979 / 979 445 / 445
[2025-07-18] MEDS: NEUTRA-PHOS POWDER PACKET 250 MG PO ×2 (09:23→12:11)
[2025-07-18] MEDS: PROTONIX 40 MG PO ×2 (09:24→20:28)
[2025-07-18] MEDS: CARAFATE 1 GRAM PO ×2 (09:24→20:28)
[2025-07-18] MEDS: ROCALTROL 0.5 MCG PO ×2 (09:37→20:24)
--- NOTE | 2025-07-18 09:49 | PN.CDI ---
CDI
- -
CDI:
Physician Documentation Request
Admit Date: 07/13/25 23:39
Dear Doctor,
Please review the following and provide your response in the progress notes.
Clinical Indicators:
Pt admitted with Anemia/Hypocalcemia 2/2 to chemo and bony mets
Upper EUS ,' One cratered gastric ulcer was found in the gastric antrum causing significant deformity in this region. Biopsies from the edge of the ulcer were taken with a cold forceps for histology....'
Clarify which of the following accurately represents the suspected acuity of the ( gastric ulcer ).
Acute
Chronic
Acute on Chronic
Other ( please specify)
Use of terms such as suspected, likely, concern for, or probable (associated with a specific diagnosis that is being evaluated, monitored, or treated as if it exists) are acceptable and can be coded in the inpatient setting, when documented at the
time of discharge.
Thank you,
Erica Panda RN
CDI Specialist
[facility]
Please use your independent medical judgment in providing your response.
[2025-07-18] MEDS: CALCIUM GLUCONATE 10% INJECTION 280 MG IV ×3 (09:58→20:29)
--- NOTE | 2025-07-18 10:26 | W.PN.NEPH.PH ---
Today's Communication / Plan
-
Sign off
Assessment/Plan
-
IMP:
Symptomatic anemia-likely due to chemotherapy
Symptomatic Hypocalcemia
Hearing loss and B/L ear congestion
Prolonged QTc
Hyponatremia, mild
Hypokalemia
Hypophosphatemia
Thrombocytopenia, acute on chronic
Transaminitis and elevated alkaline phosphatase due to malignancy
h/o gastric CA (negative biopsy from stomach), positive bone marrow biopsy for gastric ca, s/p FOLFOX, Xgeva on 07/08
PLan;
A/w symptomatic anemia and hypocalcemia
Hypocalcemia-seem refractory, normal in Oct prior chemo
suspect possible this is related to Xgeva mostly, also FOLFOX had tendency to do it too
PTH is high appropriately at 115
vit D 25 is low 19 but vit D 1,25 is high 315 -ok for calcitriol and vit D2 for now
calcium to 1000mg TID, possibly need more titration
check urine calcium excretion to r/o wasting
magnesium was ok but has hypophosphatemia-recheck labs
hyponatremia could be multifactorial poor intake and malig-stable
replace k
Bp stable but tachy-normal TSH
need to improve protein/solute intake -try protein pudding as she has runs with shakes
Endocrine managing hypocalcemia
We will sign off
If hyponatremia exacerbates we can provide [place]. Placed back on fluid restriction once diet advanced
-
-
Date of Service: July 18, 2025
CC / HPI / ROS
-
Chief Complaint:
Hyponatremia
Hypocalcemia
History of Present Illness:
Serum calcium management per endocrine maximized on oral calcium supplements calcitriol vitamin D and IV calcium infusion
Hemodynamically stable
Sodium stable at 132
Review of Systems:
Nonoliguric
Labs
-
Labs:
WBC 8.1 10^3/uL (4.8-10.8) 07/18/25 05:25
RBC 2.72 10^6/uL (4.20-5.40) L 07/18/25 05:25
Hgb 7.9 g/dL (12.0-16.0) L 07/18/25 05:25
Hct 22.4 % (37.0-47.0) L 07/18/25 05:25
Plt Count 45 10^3/uL (130-400) L 07/18/25 05:25
Sodium 132 mmol/L (135-145) L 07/18/25 05:25
Potassium 3.7 mmol/L (3.5-5.1) 07/18/25 05:25
Chloride 104 mmol/L (98-107) 07/18/25 05:25
Carbon Dioxide 23 mmol/L (22-30) 07/18/25 05:25
BUN < 2 mg/dl (7-17) L 07/18/25 05:25
Creatinine 0.3 mg/dL (0.6-1.0) L 07/18/25 05:25
eGFR > 60.00 07/18/25 05:25
Glucose 104 mg/dl (70-99) H 07/18/25 05:25
Phosphorus 1.5 mg/dl (2.5-4.5) L 07/17/25 05:06
Albumin 3.8 g/dl (3.5-5.0) 07/13/25 20:42
Physical Exam
-
Vital Signs:
Vital Signs
Temp Pulse Resp BP Pulse Ox
98.8 F 108 14 112/57 97
07/18/25 07:49 07/18/25 07:49 07/18/25 07:49 07/18/25 07:49 07/18/25 07:49
Cardiovascular:: Regular rate and rhythm
[2025-07-18 11:17] VITALS: BP 107/50
--- NOTE | 2025-07-18 12:30 | W.PN.ONC ---
Today's Communication / Plan
-
calcium repletion
follow CBC, CMP
f/u as outpt for continued management w/ Dr. Pepper
Impression
Impression
stage IV gastric cancer via bone marrow biopsy, no loss of mismatch repair deficiency on [employer] or [employer]- PDL 1 not detected -EGD gastric bx May 2025 no malignancy -PET with stomach & bone uptake
s/p C1 FOLFOX 07/08, pegfilgrastim 07/10
s/p 1st dose of xgeva 07/08
AOCD/malignancy DONI started 07/10 - iron 144, IS 48. ferritin 984 -SPEP no M spike -acute on chronic anemia
pancytopenia 2/2 bone marrow involvement of malignancy, chemotherapy
healing fracture pubic ramus
Iatrogenic hypocalcemia
hypovitaminosis D
stable transaminitis
unclear etiology for elevated Ca27.29
Plan
Plan
Repeat EGD 07/16 w/ additional biopsies obtained - path to added ER/IN/HER2 to IHC from BMBx if possible
Continue calcium replenishment - endocrine following
Subjective/Objective
Subjective/Objective
no new complaints, tired
Vital Signs:
Vital Signs
Temp Pulse Resp BP Pulse Ox
98 F 109 14 107/50 95
07/18/25 11:17 07/18/25 11:17 07/18/25 11:17 07/18/25 11:17 07/18/25 11:17
Lab Results:
Laboratory Data
WBC 8.1 10^3/uL (4.8-10.8) 07/18/25 05:25
Hgb 7.9 g/dL (12.0-16.0) L 07/18/25 05:25
Plt Count 45 10^3/uL (130-400) L 07/18/25 05:25
eGFR > 60.00 07/18/25 05:25
Exam: unchanged
[2025-07-18 13:00] LABS: 24 Hour Urine Total Volume 400 ml
--- NOTE | 2025-07-18 14:02 | CM ---
CM following for discharge planning needs; pt has sporadically participated with therapy, refusing at times.
Most recently she participated in PT and was ambulating independently 150 feet x 2 with no device. She continues with ambulation in her room.
Pt would like to return home at discharge with no needs.
[2025-07-18 14:37] LABS: Calcium 5.9 mg/dl (8.4-10.2)
[2025-07-18 15:45] VITALS: BP 105/58
[2025-07-18] MEDS: TYLENOL 650 MG PO ×2 (15:49→20:39)
[2025-07-18] MEDS: NEUTRA-PHOS POWDER PACKET PO ×3 (17:10→21:56)
[2025-07-18 19:00] VITALS: BP 114/64
[2025-07-18] MEDS: NEURONTIN 300 MG PO (21:52)
[2025-07-18 23:00] VITALS: BP 112/52
[2025-07-19] MEDS: CALCIUM GLUCONATE 10% INJECTION 280 MG IV ×5 (01:09→21:12)
[2025-07-19 03:00] VITALS: BP 108/61
[2025-07-19 05:32] LABS: Hematocrit 22.2 % (37.0-47.0); Hemoglobin 7.8 g/dL (12.0-16.0); Mean Corp Hgb Conc. 35.1 g/dL (33.0-37.0); Mean Corpuscular Volume 82.5 fL (81.0-99.0); Platelet Count 54 10^3/uL (130-400); Red Cell Dist. Width 20.7 % (11.5-14.5)
[2025-07-19 05:47] LABS: Blood Urea Nitrogen < 2 mg/dl (7-17); Calcium 6.5 mg/dl (8.4-10.2); Carbon Dioxide 23 mmol/L (22-30); Chloride 106 mmol/L (98-107); Estimated Creatinine Clearance 92 ml/min; Glucose 97 mg/dl (70-99); Potassium 3.7 mmol/L (3.5-5.1); Sodium 133 mmol/L (135-145); eGFR > 60.00
[2025-07-19] MEDS: OSCAL CAL 500 1000 MG PO ×2 (05:56→18:08)
[2025-07-19 07:30] VITALS: BP 116/56
--- NOTE | 2025-07-19 08:41 | W.PN.HOSP.TC ---
Today's Communication/Plan
-
see plan
Assessment / Plan
Assessment / Plan
Gen: NAD, AAOx3.
Eyes: EOMI, PERRLA, no scleral icterus.
Neck: supple.
CV: remains tachy, reg rhythm, +S1/S2, no m/r/g.
Resp: continues to remain CTAB anteriorly, no rales, wheezes, or rhonchi.
Skin: No rashes.
Neuro: CN 2-12 intact, non-focal.
Psych: Normal mood and affect.
EGD/EUS with FNA 07/16:
- Normal esophagus.
- Congestive gastropathy.
- Thick gastric folds resembling linitis plastica. Biopsied.
- Gastric ulcer. Biopsied.
- Normal duodenal bulb, first portion of the duodenum and second
portion of the duodenum.
- Wall thickening was seen in the lesser curve of the stomach and
in the antrum of the stomach. The thickening appeared to be
primarily within the submucosa (Layer 3) and muscularis propria
(Layer 4). Fine needle aspiration performed.
- Pancreatic parenchymal abnormalities consisting of diffusely
increased echogenicity were noted in the pancreatic body.
Symptomatic Hypocalcemia:
-likely due to Xgeva and Vit D deficiency
-50,000IU Vit-D2 weekly x 6 weeks
-s/p multiple doses of IV Ca, now on calcium infusion as per endocrinology (I called pharmacy to renew gtt through 1400 on 07/20)
-renal also following
Symptomatic anemia:
-likely due to chemotherapy (thrombocytopenia also noted)
-Hb stable s/p 2U pRBCs
-cont PPI BID
-GI following
-s/p EGD/EUS/FNA as above, follow path
Hearing loss and B/L ear congestion:
-seen by ENT, wax removed from R ear
-outpt f/u for audiogram/tympanogram
Other problems:
Asymptomatic bacteriuria
Leukocytosis, likely reactive
Prolonged QTc: improved to 469ms on recent ECG
Hyponatremia, mild
Hypokalemia, resolved
Hypophosphatemia
Thrombocytopenia, acute on chronic, trend
Transaminitis and elevated alkaline phosphatase due to malignancy, chronic, unchanged
h/o gastric CA (negative biopsy from stomach), positive bone marrow biopsy for gastric ca, s/p FOLFOX, ONC following
Discussed with endocrine and oncology
FULL/SCDs (cannot give pharmacological anticoagulation with thrombocytopenia and anemia requiring 2U pRBCs), also encourage ambulation
Anticipated Discharge: > 48 hours
Subjective/Interval History
-
Date of Service: July 19, 2025
No new complaints.
Objective Data
-
Labs:
Laboratory Results
07/19/25
04:58
WBC 13.4 H
Hgb 7.8 L
Hct 22.2 L
Plt Count 54 L
Sodium 133 L
Potassium 3.7
Chloride 106
Carbon Dioxide 23
BUN < 2 L
Creatinine 0.3 L
Glucose 97
Calcium 6.5 L*
Vital Signs:
Vital Signs
Temp Pulse Resp BP Pulse Ox
98.5 F 113 16 116/56 96
07/19/25 07:30 07/19/25 07:30 07/19/25 07:30 07/19/25 07:30 07/19/25 07:30
I&O
07/18/25 07/19/25 07/20/25
06:59 06:59 06:59
Intake Total 1445 / 1445 480 / 480
Output Total 1000 / 1000
Balance 445 / 445 480 / 480
[2025-07-19] MEDS: PROTONIX 40 MG PO ×2 (08:42→21:12)
[2025-07-19] MEDS: ROCALTROL 0.5 MCG PO ×2 (08:42→21:12)
[2025-07-19] MEDS: CARAFATE 1 GRAM PO ×2 (08:42→21:12)
[2025-07-19] MEDS: NEUTRA-PHOS POWDER PACKET PO ×4 (08:58→21:12)
[2025-07-19 11:30] VITALS: BP 128/78
[2025-07-19 15:40] VITALS: BP 143/72
[2025-07-19 19:30] VITALS: BP 140/72
[2025-07-19] MEDS: NEURONTIN 300 MG PO (21:12)
[2025-07-19] MEDS: TYLENOL 650 MG PO (21:16)
[2025-07-19 23:00] VITALS: BP 105/53
[2025-07-20] MEDS: OSCAL CAL 500 1000 MG PO ×4 (00:35→23:23)
[2025-07-20] MEDS: CALCIUM GLUCONATE 10% INJECTION 280 MG IV ×5 (01:59→23:23)
[2025-07-20 03:38] VITALS: BP 105/55
[2025-07-20 05:15] LABS: Blood Urea Nitrogen < 2 mg/dl (7-17); Calcium 7.1 mg/dl (8.4-10.2); Carbon Dioxide 23 mmol/L (22-30); Chloride 105 mmol/L (98-107); Estimated Creatinine Clearance 92 ml/min; Glucose 100 mg/dl (70-99); Potassium 3.8 mmol/L (3.5-5.1); Sodium 133 mmol/L (135-145); eGFR > 60.00
[2025-07-20 05:43] LABS: Hematocrit 24.5 % (37.0-47.0); Hemoglobin 8.4 g/dL (12.0-16.0); Mean Corp Hgb Conc. 34.3 g/dL (33.0-37.0); Mean Corpuscular Volume 83.3 fL (81.0-99.0); Platelet Count 61 10^3/uL (130-400); Red Cell Dist. Width 21.3 % (11.5-14.5)
[2025-07-20 07:30] VITALS: BP 122/57
--- NOTE | 2025-07-20 09:20 | W.PN.HOSP.TC ---
Today's Communication/Plan
-
see plan
Assessment / Plan
Assessment / Plan
Gen: NAD, AAOx3.
Eyes: EOMI, PERRLA, no scleral icterus.
Neck: supple.
CV: continues to remain tachy, reg rhythm, +S1/S2, no m/r/g.
Resp: CTAB anteriorly, no rales, wheezes, or rhonchi.
Skin: No rashes. 2+ B/L LE edema
Neuro: CN 2-12 intact, non-focal.
Psych: Normal mood and affect.
EGD/EUS with FNA 07/16:
- Normal esophagus.
- Congestive gastropathy.
- Thick gastric folds resembling linitis plastica. Biopsied.
- Gastric ulcer. Biopsied.
- Normal duodenal bulb, first portion of the duodenum and second
portion of the duodenum.
- Wall thickening was seen in the lesser curve of the stomach and
in the antrum of the stomach. The thickening appeared to be
primarily within the submucosa (Layer 3) and muscularis propria
(Layer 4). Fine needle aspiration performed.
- Pancreatic parenchymal abnormalities consisting of diffusely
increased echogenicity were noted in the pancreatic body.
Symptomatic Hypocalcemia:
-likely due to Xgeva and Vit D deficiency
-50,000IU Vit-D2 weekly x 6 weeks
-s/p multiple doses of IV Ca, now on calcium infusion as per endocrinology
-Ca improving, check albumin today to calculate corrected Ca
-Ca infusion renewed through 07/20 afternoon
Symptomatic anemia:
-likely due to chemotherapy (thrombocytopenia also noted)
-Hb stable s/p 2U pRBCs
-cont PPI BID
-GI following
-s/p EGD/EUS/FNA as above, follow path
Hearing loss and B/L ear congestion:
-seen by ENT, wax removed from R ear
-outpt f/u for audiogram/tympanogram
-finally improving on 07/20
Leukocytosis:
-worsening
-currently afebrile
-check WBC differential
-received pegfilgrastim 07/10
-no s/s of infection
-case discussed with Dr. Curry who will see today
B/L LE edema:
-likely volume related
-check B/L LE U/S
Other problems:
Asymptomatic bacteriuria
Prolonged QTc: improved to 469ms on recent ECG, recheck today
Hyponatremia, mild
Hypokalemia, resolved
Hypophosphatemia
Thrombocytopenia, acute on chronic, trend
Transaminitis and elevated alkaline phosphatase due to malignancy, chronic, unchanged
h/o gastric CA (negative biopsy from stomach), positive bone marrow biopsy for gastric ca, s/p FOLFOX, ONC following
Pt's daughter updated over the phone.
FULL/SCDs, now that plts 61 and Hb remains stable s/p pRBCs will initiate pharmacological DVT prophylaxis with Lovenox
Anticipated Discharge: 24 - 48 hours
Subjective/Interval History
-
Date of Service: July 20, 2025
Denies CP/SOB/abd pain/diaphoresis/dysuria. States hearing is improving.
Objective Data
-
Labs:
Laboratory Results
07/20/25
04:36
WBC 24.3 H
Hgb 8.4 L
Hct 24.5 L
Plt Count 61 L
Sodium 133 L
Potassium 3.8
Chloride 105
Carbon Dioxide 23
BUN < 2 L
Creatinine 0.4 L
Glucose 100 H
Calcium 7.1 L
Vital Signs:
Vital Signs
Temp Pulse Resp BP Pulse Ox
98.1 F 113 16 122/57 93
07/20/25 07:30 07/20/25 07:30 07/20/25 07:30 07/20/25 07:30 07/20/25 07:30
I&O
07/19/25 07/20/25 07/21/25
06:59 06:59 06:59
Intake Total 480 / 480 720 / 720
Balance 480 / 480 720 / 720
[2025-07-20 09:54] LABS: ALT (SGPT) 29 U/L (0-35); AST (SGOT) 56 U/L (14-36); Albumin 3.2 g/dl (3.5-5.0); Total Protein 5.4 g/dl (6.3-8.2)
[2025-07-20 10:04] LABS: Alkaline Phosphatase > 2400 U/L (38-126)
[2025-07-20] MEDS: ROCALTROL 0.5 MCG PO ×2 (10:11→20:59)
[2025-07-20] MEDS: CARAFATE 1 GRAM PO ×2 (10:11→20:59)
[2025-07-20] MEDS: PROTONIX 40 MG PO ×2 (10:11→20:59)
[2025-07-20] MEDS: NEUTRA-PHOS POWDER PACKET PO ×4 (10:13→21:00)
[2025-07-20] MEDS: LOVENOX 40 MG SC (10:18)
[2025-07-20] MEDS: SODIUM PHOSPHATE 255 MEQ IV (10:55)
[2025-07-20 11:10] VITALS: BP 126/71
[2025-07-20] MEDS: FLUSH (NSS) 1 FLUSH IV (11:11)
--- NOTE | 2025-07-20 13:15 | W.PN.ONC2 ---
Today's Communication / Plan
-
CBC tonight
Impression
Impression
stage IV gastric cancer via bone marrow biopsy, no loss of mismatch repair deficiency on [employer] or [employer]- PDL 1 not detected -EGD gastric bx May 2025 no malignancy -PET with stomach & bone uptake
s/p C1 FOLFOX 07/08, pegfilgrastim 07/10
s/p 1st dose of xgeva 07/08
AOCD/malignancy DONI started 07/10 - iron 144, IS 48. ferritin 984 -SPEP no M spike -acute on chronic anemia
pancytopenia /2 bone marrow involvement of malignancy, chemotherapy
healing fracture pubic ramus
Iatrogenic hypocalcemia
hypovitaminosis D
stable transaminitis
unclear etiology for elevated Ca27.29
Plan
Plan
Repeat EGD 07/16 w/ additional biopsies obtained - path to added ER/LA/HER2 to IHC from BMBx if possible
Continue calcium replenishment - endocrine following
recheck CBC
Subjective/Objective
Chief Complaint
no pain, fevers/chill or sweats-- lessening circumoral tingling
Subjective
Vital Signs:
Vital Signs
Temp Pulse Resp BP Pulse Ox
98.0 F 114 16 126/71 97
07/20/25 11:10 07/20/25 11:10 07/20/25 11:10 07/20/25 11:10 07/20/25 11:10
Lab Results:
Laboratory Data
WBC 24.3 10^3/uL (4.8-10.8) H 07/20/25 04:36
Hgb 8.4 g/dL (12.0-16.0) L 07/20/25 04:36
Plt Count 61 10^3/uL (130-400) L 07/20/25 04:36
eGFR > 60.00 07/20/25 04:36
Physical Exam
HEENT: Moist Mucous Membranes
Cardiology: Normal Sinus Rhythm
Pulmonary: Clear
GI: Normal Bowel Sounds
Extremities: Pulses Present
Neuro: Non Focal
Orders
Orders
recheck CBC later today to ascertain trend as she is past time of zenith of the WBC from prior CSF
[2025-07-20 14:08] LABS: Absolute Neutrophils -Man Diff 11.1 10^3/uL (1.4-6.5)
[2025-07-20 14:09] LABS: Normal RBC Morphology No; Platelets Checked Yes
[2025-07-20 14:16] LABS: Anisocytosis 2+; Hypochromasia 1+; Ovalocytes Slight; Polychromasia Slight; Total Cells Counted 100
[2025-07-20 15:55] VITALS: BP 132/71
[2025-07-20] MEDS: OCEAN, SALINE MIST 2 SPRAYS NASAL (16:50)
[2025-07-20 19:00] VITALS: BP 133/73
[2025-07-20] MEDS: TYLENOL 650 MG PO (20:58)
[2025-07-20] MEDS: NEURONTIN 300 MG PO (21:00)
[2025-07-20 22:46] LABS: Hematocrit 23.5 % (37.0-47.0); Hemoglobin 7.9 g/dL (12.0-16.0); Mean Corp Hgb Conc. 33.6 g/dL (33.0-37.0); Mean Corpuscular Volume 85.8 fL (81.0-99.0); Platelet Count 67 10^3/uL (130-400); Red Cell Dist. Width 21.8 % (11.5-14.5)
[2025-07-20 22:52] LABS: Calcium 7.0 mg/dl (8.4-10.2)
[2025-07-20 23:00] VITALS: BP 102/49
[2025-07-20 23:17] LABS: Absolute Neutrophils -Man Diff 10.9 10^3/uL (1.4-6.5)
[2025-07-20 23:18] LABS: Normal RBC Morphology Yes; Platelets Checked Yes; Total Cells Counted 100
[2025-07-21] VITALS (7 sets, daily range): BP systolic 109–144; BP diastolic 59–82; PULSE 107; O2SAT 97
[2025-07-21] MEDS: CALCIUM GLUCONATE 10% INJECTION 280 MG IV ×4 (04:16→18:19)
[2025-07-21 04:50] LABS: Blood Urea Nitrogen < 2 mg/dl (7-17); Calcium 7.1 mg/dl (8.4-10.2); Carbon Dioxide 25 mmol/L (22-30); Chloride 107 mmol/L (98-107); Estimated Creatinine Clearance 92 ml/min; Glucose 104 mg/dl (70-99); Potassium 3.4 mmol/L (3.5-5.1); Sodium 133 mmol/L (135-145); eGFR > 60.00
[2025-07-21 05:30] LABS: Hematocrit 23.0 % (37.0-47.0); Hemoglobin 8.0 g/dL (12.0-16.0); Mean Corp Hgb Conc. 34.8 g/dL (33.0-37.0); Mean Corpuscular Volume 84.9 fL (81.0-99.0); Platelet Count 65 10^3/uL (130-400); Red Cell Dist. Width 21.6 % (11.5-14.5)
[2025-07-21] MEDS: OSCAL CAL 500 1000 MG PO ×3 (05:39→23:56)
[2025-07-21] MEDS: ROCALTROL 0.5 MCG PO ×2 (08:25→20:48)
[2025-07-21] MEDS: LOVENOX 40 MG SC (08:26)
[2025-07-21] MEDS: PROTONIX 40 MG PO ×2 (08:26→20:48)
[2025-07-21] MEDS: CARAFATE 1 GRAM PO ×2 (08:26→20:48)
[2025-07-21] MEDS: NEUTRA-PHOS POWDER PACKET PO ×4 (08:28→21:39)
[2025-07-21] MEDS: KCL 20 MEQ PO (08:37)
[2025-07-21 09:33] LABS: ALT (SGPT) 27 U/L (0-35); AST (SGOT) 55 U/L (14-36); Albumin 2.9 g/dl (3.5-5.0); Magnesium 1.8 mg/dl (1.6-2.3); Total Protein 5.2 g/dl (6.3-8.2)
[2025-07-21 09:55] LABS: Alkaline Phosphatase > 2400 U/L (38-126)
[2025-07-21] MEDS: SODIUM PHOSPHATE 255 MEQ IV (10:19)
--- NOTE | 2025-07-21 10:57 | W.PN.ONC2 ---
Today's Communication / Plan
-
..
Impression
Impression
stage IV gastric cancer via bone marrow biopsy, no loss of mismatch repair deficiency on [employer] or [employer]- PDL 1 not detected -EGD gastric bx May 2025 no malignancy -PET with stomach & bone uptake
s/p C1 FOLFOX 07/08, pegfilgrastim 07/10
s/p 1st dose of xgeva 07/08
AOCD/malignancy DONI started 07/10 - iron 144, IS 48. ferritin 984 -SPEP no M spike -acute on chronic anemia
pancytopenia / bone marrow involvement of malignancy, chemotherapy
healing fracture pubic ramus
Iatrogenic hypocalcemia
hypovitaminosis D
stable transaminitis
unclear etiology for elevated Ca27.29 -BMBx was ER, [place] negative
Plan
Plan
Repeat EGD 07/16 w/ additional biopsies obtained -follow path
Continue calcium replenishment - endocrine following
daily CBC, BMP
I called pt marlen, Dr. Evans, to provide updates and answer questions
Subjective/Objective
Subjective
afebrile, no hypoxia or hypotension
continues with buccal paraesthesias
hearing improved
denies pain
denies overt bleeding
Vital Signs:
Vital Signs
Temp Pulse Resp BP Pulse Ox
98.2 F 117 18 122/59 93
07/21/25 07:00 07/21/25 07:00 07/21/25 07:00 07/21/25 07:00 07/21/25 07:00
Lab Results:
Laboratory Data
WBC 26.1 10^3/uL (4.8-10.8) H 07/21/25 04:28
Hgb 8.0 g/dL (12.0-16.0) L 07/21/25 04:28
Plt Count 65 10^3/uL (130-400) L 07/21/25 04:28
eGFR > 60.00 07/21/25 04:29
Physical Exam
HEENT: No Jaundice
Pulmonary: Other (unlaboredd)
GI: Soft
Extremities: Pulses Present
--- NOTE | 2025-07-21 13:19 | W.PN.HOSP.TC ---
Today's Communication/Plan
-
replete K/Phos
endo input
trend wbc
Assessment / Plan
Assessment / Plan
Gen: NAD, AAOx3.
Eyes: EOMI, PERRLA, no scleral icterus.
Neck: supple.
CV: continues to remain tachy, reg rhythm, +S1/S2, no m/r/g.
Resp: CTAB anteriorly, no rales, wheezes, or rhonchi.
Skin: No rashes. 2+ B/L LE edema
Neuro: CN 2-12 intact, non-focal.
Psych: Normal mood and affect.
EGD/EUS with FNA 07/16:
- Normal esophagus.
- Congestive gastropathy.
- Thick gastric folds resembling linitis plastica. Biopsied.
- Gastric ulcer. Biopsied.
- Normal duodenal bulb, first portion of the duodenum and second
portion of the duodenum.
- Wall thickening was seen in the lesser curve of the stomach and
in the antrum of the stomach. The thickening appeared to be
primarily within the submucosa (Layer 3) and muscularis propria
(Layer 4). Fine needle aspiration performed.
- Pancreatic parenchymal abnormalities consisting of diffusely
increased echogenicity were noted in the pancreatic body.
Symptomatic Hypocalcemia:
-likely due to Xgeva and Vit D deficiency
-50,000IU Vit-D2 weekly x 6 weeks
-s/p multiple doses of IV Ca, now on calcium infusion as per endocrinology
-Ca remaining stable-corrected Ca at 7.4
-Ca infusion renewed -can probably be stopped in next 24h
-Continue with po calcium carbonate 1000mg TID. Cont Calcitriol.
-await further endo input
Symptomatic anemia:
-likely due to chemotherapy (thrombocytopenia also noted)
-Hb stable s/p 2U pRBCs
-cont PPI BID
-GI following
-s/p EGD/EUS/FNA as above, follow path
Hearing loss and B/L ear congestion:
-seen by ENT, wax removed from R ear
-outpt f/u for audiogram/tympanogram
-finally improving on 07/20
Leukocytosis:
-plateau/downtrending
-currently afebrile
-received pegfilgrastim 07/10
-no s/s of infection
-onc following
B/L LE edema:
-likely volume related
-B/L LE U/S-neg for dvt
Other problems:
Asymptomatic bacteriuria
Prolonged QTc: improved to 458 ms on recent ECG,
Hyponatremia, mild
Hypokalemia, resolved
Hypophosphatemia-replete IV/PO.
Thrombocytopenia, acute on chronic, trend
Transaminitis and elevated alkaline phosphatase due to malignancy, chronic, unchanged
h/o gastric CA (negative biopsy from stomach), positive bone marrow biopsy for gastric ca, s/p FOLFOX, ONC following
FULL
DVT ppx-lovenox
Called daughter over the phone to update. No response. left voicemail.
Anticipated Discharge: > 48 hours
Subjective/Interval History
-
Date of Service: July 21, 2025
states appetite is slowly improving
Objective Data
-
Labs:
Laboratory Results
07/21/25 07/21/25
04:28 04:29
WBC 26.1 H
Hgb 8.0 L
Hct 23.0 L
Plt Count 65 L
Sodium 133 L
Potassium 3.4 L
Chloride 107
Carbon Dioxide 25
BUN < 2 L
Creatinine 0.3 L
Glucose 104 H
Calcium 7.1 L
Total Bilirubin 0.6
AST 55 H
ALT 27
Alkaline Phosphatase > 2400 H
Vital Signs:
Vital Signs
Temp Pulse Resp BP Pulse Ox
98.6 F 113 16 135/67 95
07/21/25 11:00 07/21/25 11:00 07/21/25 11:00 07/21/25 11:00 07/21/25 11:00
I&O
07/20/25 07/21/25 07/22/25
06:59 06:59 06:59
Intake Total 720 / 720 840 / 840 480 / 480
Balance 720 / 720 840 / 840 480 / 480
Data Reviewed
-
Total Time Spent with Patient (in minutes): 55
[2025-07-21] MEDS: DRISDOL (VITAMIN D2) 50000 UNITS PO (14:03)
--- NOTE | 2025-07-21 15:58 | CM ---
patient seen at bedside
PT rec home health
discussed options - she stated she will get back to CM after speaking with her daughter
plan: Home with home health, to follow up with patient for VN
[2025-07-21] MEDS: NEURONTIN 300 MG PO (21:37)
[2025-07-21] MEDS: TYLENOL 650 MG PO (21:39)
[2025-07-22] MEDS: CALCIUM GLUCONATE 10% INJECTION 280 MG IV ×3 (00:03→11:05)
[2025-07-22 03:00] VITALS: BP 124/66
[2025-07-22 05:55] LABS: Hematocrit 22.3 % (37.0-47.0); Hemoglobin 7.7 g/dL (12.0-16.0); Mean Corp Hgb Conc. 34.5 g/dL (33.0-37.0); Mean Corpuscular Volume 84.8 fL (81.0-99.0); Platelet Count 70 10^3/uL (130-400); Red Cell Dist. Width 22.3 % (11.5-14.5)
[2025-07-22] MEDS: OSCAL CAL 500 1000 MG PO ×3 (06:00→23:04)
[2025-07-22 06:15] LABS: ALT (SGPT) 29 U/L (0-35); AST (SGOT) 57 U/L (14-36); Blood Urea Nitrogen < 2 mg/dl (7-17); Calcium 7.2 mg/dl (8.4-10.2); Carbon Dioxide 23 mmol/L (22-30); Chloride 105 mmol/L (98-107); Estimated Creatinine Clearance 92 ml/min; Glucose 100 mg/dl (70-99); Potassium 3.3 mmol/L (3.5-5.1); Sodium 133 mmol/L (135-145); Total Protein 5.0 g/dl (6.3-8.2); eGFR > 60.00
[2025-07-22 06:28] LABS: Albumin 2.8 g/dl (3.5-5.0); Alkaline Phosphatase > 2400 U/L (38-126)
[2025-07-22 07:25] VITALS: BP 132/65
[2025-07-22] MEDS: NEUTRA-PHOS POWDER PACKET PO ×4 (08:33→22:21)
[2025-07-22] MEDS: CARAFATE 1 GRAM PO ×2 (08:33→21:03)
[2025-07-22] MEDS: PROTONIX 40 MG PO ×2 (08:33→21:03)
[2025-07-22] MEDS: LOVENOX 40 MG SC (08:33)
--- NOTE | 2025-07-22 08:34 | W.PN.ONC ---
Today's Communication / Plan
-
Continue IV and PO calcium, will reach out to endocrinology re: threshold to consider outpatient mgmt (I could arrange IV calcium in our office if needed)
Repeat EGD 07/16 w/ additional biopsies obtained - Path + for gastric cancer, sent for add'l studies (PLD1, Claudin 18.2) which weren't able to be performed on decalcified bone biopsy
daily CBC, CMP
Impression
Impression
stage IV gastric cancer via bone marrow biopsy, no loss of mismatch repair deficiency on [employer] or [employer]- PDL 1 not detected -EGD gastric bx May 2025 no malignancy -PET with stomach & bone uptake
s/p C1 FOLFOX 07/08, pegfilgrastim 07/10
s/p 1st dose of xgeva 07/08
AOCD/malignancy DONI started 07/10 - iron 144, IS 48. ferritin 984 -SPEP no M spike -acute on chronic anemia
pancytopenia 2/2 bone marrow involvement of malignancy, chemotherapy
healing fracture pubic ramus
Iatrogenic hypocalcemia
hypovitaminosis D
stable transaminitis
unclear etiology for elevated Ca27.29 -BMBx was ER, [place] negative
Plan
Plan
Continue IV and PO calcium, will reach out to endocrinology re: threshold to consider outpatient mgmt (I could arrange IV calcium in our office if needed)
Repeat EGD 07/16 w/ additional biopsies obtained - Path + for gastric cancer, sent for add'l studies (PLD1, Claudin 18.2) which weren't able to be performed on decalcified bone biopsy
daily CBC, CMP
Subjective/Objective
Subjective/Objective
Weakness has lessened since admission
Appetite fair, no pain
Ankle edema worse at night
Getting OOB
Vital Signs:
Vital Signs
Temp Pulse Resp BP Pulse Ox
97.1 F 115 16 132/65 94
07/22/25 07:25 07/22/25 07:25 07/22/25 07:25 07/22/25 07:25 07/22/25 07:25
Lab Results:
Laboratory Data
WBC 25.4 10^3/uL (4.8-10.8) H 07/22/25 05:12
Hgb 7.7 g/dL (12.0-16.0) L 07/22/25 05:12
Plt Count 70 10^3/uL (130-400) L 07/22/25 05:12
eGFR > 60.00 07/22/25 05:12
[2025-07-22] MEDS: ROCALTROL 0.5 MCG PO (08:36)
[2025-07-22] MEDS: KCL 270 MEQ IV (08:44)
[2025-07-22 09:11] LABS: Magnesium 1.8 mg/dl (1.6-2.3)
[2025-07-22 09:17] LABS: Absolute Neutrophils -Man Diff 12.4 10^3/uL (1.4-6.5)
[2025-07-22 09:18] LABS: Anisocytosis 2+; Normal RBC Morphology No; Platelets Checked Yes
[2025-07-22 09:19] LABS: Hypochromasia 1+; Macrocytosis 1+; Polychromasia 1+; Total Cells Counted 100
[2025-07-22 11:25] VITALS: BP 136/65
--- NOTE | 2025-07-22 12:12 | CM ---
CM following for discharge planning; anticipated discharge to home with VN. Pt unsure about which VN to choose. [employer] VN list provided to patient who will choose an agency. She plans to stay with her daughter in [place].
Plan: Discharge to daughter's home with VN. Agency choice pending. CM will follow up with patient and send referral to agency she chooses.
--- NOTE | 2025-07-22 12:21 | W.PN.HOSP.TC ---
Addendum entered and electronically signed by Carlos Landry MD 07/22/25 13:19:
Discussed with Dr. Evans over the phone in details
Original Note:
Today's Communication/Plan
-
encourage increase po intake
stop IV calcium infusion
increase calcitriol
Replete potassium and phosphorus
Assessment / Plan
Assessment / Plan
Gen: NAD, AAOx3.
Eyes: EOMI, PERRLA, no scleral icterus.
Neck: supple.
CV: continues to remain tachy, reg rhythm, +S1/S2, no m/r/g.
Resp: CTAB anteriorly, no rales, wheezes, or rhonchi.
Skin: No rashes. 2+ B/L LE edema
Neuro: CN 2-12 intact, non-focal.
Psych: Normal mood and affect.
EGD/EUS with FNA 07/16:
- Normal esophagus.
- Congestive gastropathy.
- Thick gastric folds resembling linitis plastica. Biopsied.
- Gastric ulcer. Biopsied.
- Normal duodenal bulb, first portion of the duodenum and second
portion of the duodenum.
- Wall thickening was seen in the lesser curve of the stomach and
in the antrum of the stomach. The thickening appeared to be
primarily within the submucosa (Layer 3) and muscularis propria
(Layer 4). Fine needle aspiration performed.
- Pancreatic parenchymal abnormalities consisting of diffusely
increased echogenicity were noted in the pancreatic body.
Symptomatic Hypocalcemia:
-likely due to Xgeva and Vit D deficiency
-50,000IU Vit-D2 weekly x 6 weeks
-s/p multiple doses of IV Ca and calcium infusion. Will discontinue IV calcium infusion today
-Ca remaining stable-corrected Ca at 8.2
-Continue with po calcium carbonate 1000mg TID. Cont Calcitriol dose increased to 1 mcg twice daily.
- Per endocrinology stabilization of calcium could take weeks. Per discussion with Dr. Pepper IV calcium infusion can be set up as outpatient if needed.
Symptomatic anemia:
-likely due to chemotherapy (thrombocytopenia also noted)
-Hb stable s/p 2U pRBCs
-cont PPI BID
-GI following
-s/p EGD/EUS/FNA as above, follow path with gastric adenocarcinoma and oncology ordered further studies.
Hearing loss and B/L ear congestion:
-seen by ENT, wax removed from R ear
-outpt f/u for audiogram/tympanogram
-finally improving on 07/20
Leukocytosis:
Pancytopenia secondary to bone marrow involvement of malignancy and chemotherapy
Acute on chronic thrombocytopenia
-plateau/downtrending
-currently afebrile
-received pegfilgrastim 07/10
-no s/s of infection
-onc following
B/L LE edema:
-likely volume related
-B/L LE U/S-neg for dvt
Other problems:
Asymptomatic bacteriuria
Prolonged QTc: improved to 458 ms on recent ECG,
Hyponatremia, mild
Hypokalemia, resolved
Hypophosphatemia-replete IV/PO.
Transaminitis and elevated alkaline phosphatase due to malignancy, chronic, unchanged
h/o gastric CA (negative biopsy from stomach), positive bone marrow biopsy for gastric ca, s/p FOLFOX, ONC following
FULL
DVT ppx-lovenox
Discussed with oncology and barrel brander
Called daughter physician over the phone no response left in detail voicemail/
Anticipated Discharge: Within 24 hours
Subjective/Interval History
-
Date of Service: July 22, 2025
feeling better -compared to admission
Objective Data
-
Labs:
Laboratory Results
07/22/25
05:12
WBC 25.4 H
Hgb 7.7 L
Hct 22.3 L
Plt Count 70 L
Sodium 133 L
Potassium 3.3 L
Chloride 105
Carbon Dioxide 23
BUN < 2 L
Creatinine 0.4 L
Glucose 100 H
Calcium 7.2 L
Total Bilirubin 0.5
AST 57 H
ALT 29
Alkaline Phosphatase > 2400 H
Vital Signs:
Vital Signs
Temp Pulse Resp BP Pulse Ox
97.1 F 115 16 132/65 94
07/22/25 07:25 07/22/25 07:25 07/22/25 07:25 07/22/25 07:25 07/22/25 07:25
I&O
07/21/25 07/22/25 07/23/25
06:59 06:59 06:59
Intake Total 840 / 840 720 / 720
Balance 840 / 840 720 / 720
Data Reviewed
-
Total Time Spent with Patient (in minutes): 55
[2025-07-22] MEDS: SODIUM PHOSPHATE 255 MEQ IV (12:25)
[2025-07-22] MEDS: CALCIUM GLUCONATE 10% INJECTION IV (13:13)
[2025-07-22 15:24] VITALS: BP 121/58
[2025-07-22 19:00] VITALS: BP 141/73
[2025-07-22] MEDS: ROCALTROL 1 MCG PO (21:09)
[2025-07-22] MEDS: TYLENOL 650 MG PO (21:12)
[2025-07-22] MEDS: NEURONTIN 300 MG PO (22:21)
[2025-07-22 23:00] VITALS: BP 109/53
[2025-07-23 03:00] VITALS: BP 118/49
[2025-07-23 05:18] LABS: Hematocrit 22.4 % (37.0-47.0); Hemoglobin 7.5 g/dL (12.0-16.0); Mean Corp Hgb Conc. 33.5 g/dL (33.0-37.0); Mean Corpuscular Volume 84.8 fL (81.0-99.0); Platelet Count 92 10^3/uL (130-400); Red Cell Dist. Width 22.6 % (11.5-14.5)
[2025-07-23 05:31] LABS: ALT (SGPT) 28 U/L (0-35); AST (SGOT) 54 U/L (14-36); Albumin 2.8 g/dl (3.5-5.0); Blood Urea Nitrogen < 2 mg/dl (7-17); Calcium 6.1 mg/dl (8.4-10.2); Carbon Dioxide 25 mmol/L (22-30); Chloride 108 mmol/L (98-107); Estimated Creatinine Clearance 92 ml/min; Glucose 100 mg/dl (70-99); Magnesium 1.7 mg/dl (1.6-2.3); Potassium 3.5 mmol/L (3.5-5.1); Sodium 134 mmol/L (135-145); Total Protein 5.2 g/dl (6.3-8.2); eGFR > 60.00
[2025-07-23 05:37] LABS: Alkaline Phosphatase > 2400 U/L (38-126)
[2025-07-23] MEDS: OSCAL CAL 500 1000 MG PO ×4 (06:17→21:24)
[2025-07-23] MEDS: ROCALTROL 1 MCG PO ×2 (06:29→21:27)
[2025-07-23 07:06] VITALS: BP 107/55
[2025-07-23 07:58] LABS: Absolute Neutrophils -Man Diff 9.2 10^3/uL (1.4-6.5)
[2025-07-23 07:59] LABS: Anisocytosis 1+; Hypochromasia 1+; Microcytosis 1+; Normal RBC Morphology No; Platelets Checked Yes; Rouleaux 1+; Spherocytes 1+; Total Cells Counted 100
[2025-07-23] MEDS: CALCIUM GLUCONATE 280 MG IV (08:33)
[2025-07-23] MEDS: PROTONIX 40 MG PO ×2 (08:34→21:24)
[2025-07-23] MEDS: CARAFATE 1 GRAM PO ×2 (08:34→21:23)
[2025-07-23] MEDS: NEUTRA-PHOS POWDER PACKET PO ×4 (08:34→21:27)
[2025-07-23] MEDS: LOVENOX 40 MG SC (08:34)
--- NOTE | 2025-07-23 09:53 | W.PN.ONC2 ---
Today's Communication / Plan
-
- Continue IV and p.o. calcium as needed
- Dr. Pepper spoke with endocrinology for outpatient management and will arrange for IV calcium in the [place] [facility] as needed
- Continue with daily CBC and CMP
Impression
Impression
stage IV gastric cancer via bone marrow biopsy, no loss of mismatch repair deficiency on [employer] or [employer]- PDL 1 not detected -EGD gastric bx May 2025 no malignancy -PET with stomach & bone uptake
s/p C1 FOLFOX 07/08, pegfilgrastim 07/10
s/p 1st dose of xgeva 07/08
AOCD/malignancy DONI started 07/10 - iron 144, IS 48. ferritin 984 -SPEP no M spike -acute on chronic anemia
pancytopenia 2/2 bone marrow involvement of malignancy, chemotherapy
healing fracture pubic ramus
Iatrogenic hypocalcemia
hypovitaminosis D
stable transaminitis
unclear etiology for elevated Ca27.29 -BMBx was ER, [place] negative
Plan
Plan
- Continue IV and PO calcium as needed
- Dr. Pepper reached out to endocrinology re: threshold to consider outpatient mgmt and is planning for IV calcium in the [place] [facility] if needed
- Repeat EGD 07/16 w/ additional biopsies obtained - Path + for gastric cancer, sent for add'l studies (PLD1, Claudin 18.2) which weren't able to be performed on decalcified bone biopsy
- Continue with daily CBC, CMP
- Follow-up with Dr. Pepper outpatient
Subjective/Objective
Chief Complaint
Weakness, low calcium s/p 1 dose of Xgeva
Subjective
- This morning, she is sitting up in bed and reports feeling a little bit better. However, she states that they cannot get her off of the IV calcium as her calcium levels dropped when she switches to oral supplements. Otherwise, she feels less
weak and has a better appetite today. She continues to get out of bed as much as she can.
Vital Signs:
Vital Signs
Temp Pulse Resp BP Pulse Ox
98.6 F 107 18 107/55 95
07/23/25 07:06 07/23/25 07:06 07/23/25 07:06 07/23/25 07:06 07/23/25 07:06
Lab Results:
Laboratory Data
WBC 24.4 10^3/uL (4.8-10.8) H 07/23/25 04:46
Hgb 7.5 g/dL (12.0-16.0) L 07/23/25 04:46
Plt Count 92 10^3/uL (130-400) L D 07/23/25 04:46
eGFR > 60.00 07/23/25 04:46
Physical Exam
HEENT: Moist Mucous Membranes
Cardiology: Normal Sinus Rhythm
Pulmonary: Clear
GI: Soft
Review of Systems
Review of Systems
Constitutional: Reports Fatigue
[2025-07-23] MEDS: SODIUM PHOSPHATE 255 MEQ IV (10:32)
[2025-07-23 11:05] VITALS: BP 130/61
--- NOTE | 2025-07-23 12:20 | W.PN.HOSP.TC ---
Today's Communication/Plan
-
IV calcium for today
Increase calcium carbonate
calcitriol dose also increase
repeat bmp
trend cbc
replete phos
Assessment / Plan
Assessment / Plan
Gen: NAD, AAOx3.
Eyes: EOMI, P , no scleral icterus.
Neck: supple.
CV: continues to remain tachy, reg rhythm, +S1/S2, no m/r/g.
Resp: CTAB anteriorly, no rales, wheezes, or rhonchi.
Skin: No rashes. 2+ B/L LE edema
Neuro: CN 2-12 intact, non-focal.
Psych: Normal mood and affect.
Symptomatic Hypocalcemia:
-likely due to Xgeva and Vit D deficiency
-50,000IU Vit-D2 weekly x 6 weeks
-s/p multiple doses of IV Ca and calcium infusion. Will discontinue IV calcium infusion today
-Ca dropped today compared to yesterday. corrected Ca at 7.1
-Increase po calcium carbonate 1000mg QID. Cont Calcitriol dose increased to 1 mcg twice daily. Replete IV calcium and repeat blood work tonight
-Per endocrinology stabilization of calcium could take weeks. Per discussion with Dr. Pepper IV calcium infusion can be set up as outpatient if needed.
Symptomatic anemia:
-likely due to chemotherapy (thrombocytopenia also noted)
-Hb at 7.5 s/p 2U pRBCs
-cont PPI BID
-s/p EGD/EUS/FNA as above, follow path with gastric adenocarcinoma and oncology ordered further studies.
Hearing loss and B/L ear congestion:
-seen by ENT, wax removed from R ear
-outpt f/u for audiogram/tympanogram
-finally improving on 07/20
Leukocytosis:
Bicytopenia secondary to bone marrow involvement of malignancy and chemotherapy
Acute on chronic thrombocytopenia
-plateau/downtrending
-currently afebrile
-received pegfilgrastim 07/10
-no s/s of infection. Plt improving.
-onc following
B/L LE edema:
-likely volume related
-B/L LE U/S-neg for dvt
Other problems:
Asymptomatic bacteriuria
Prolonged QTc: improved to 458 ms on recent ECG,
Hyponatremia, mild
Hypokalemia, resolved
Hypophosphatemia-replete IV/PO.
Transaminitis and elevated alkaline phosphatase due to malignancy, chronic, unchanged
h/o gastric CA (negative biopsy from stomach), positive bone marrow biopsy for gastric ca, s/p FOLFOX, ONC following
FULL
DVT ppx-lovenox
update Dr. Evans daughter over the phone in details
Anticipated Discharge: Within 24 hours
Subjective/Interval History
-
Date of Service: July 23, 2025
tolerating diet
understands her low calcium
Objective Data
-
Labs:
Laboratory Results
07/23/25
04:46
WBC 24.4 H
Hgb 7.5 L
Hct 22.4 L
Plt Count 92 L D
Sodium 134 L
Potassium 3.5
Chloride 108 H
Carbon Dioxide 25
BUN < 2 L
Creatinine 0.4 L
Glucose 100 H
Calcium 6.1 L*
Total Bilirubin 0.6
AST 54 H
ALT 28
Alkaline Phosphatase > 2400 H
Vital Signs:
Vital Signs
Temp Pulse Resp BP Pulse Ox
98.5 F 106 18 130/61 97
07/23/25 11:05 07/23/25 11:05 07/23/25 11:05 07/23/25 11:05 07/23/25 11:05
I&O
07/22/25 07/23/25 07/24/25
06:59 06:59 06:59
Intake Total 720 / 720 750 / 750
Balance 720 / 720 750 / 750
Data Reviewed
-
Total Time Spent with Patient (in minutes): 55
[2025-07-23 15:00] VITALS: BP 124/57
--- NOTE | 2025-07-23 17:13 | CM ---
Patient is agreeable to home care services, however she has chosen an agency that is not a home care agency - it is an agency that provides assistance with ADLs. CM did not get to return to the patient's room to discuss this and obtain VN choice.
Agency information on my desk for patient to understand what she is asking for is outside the scope of VN.
[2025-07-23 19:00] VITALS: BP 131/65
[2025-07-23] MEDS: NEURONTIN 300 MG PO (21:27)
[2025-07-23] MEDS: TYLENOL 650 MG PO (21:32)
[2025-07-23 21:37] LABS: Blood Urea Nitrogen 3 mg/dl (7-17); Calcium 6.3 mg/dl (8.4-10.2); Carbon Dioxide 23 mmol/L (22-30); Chloride 103 mmol/L (98-107); Estimated Creatinine Clearance 92 ml/min; Glucose 120 mg/dl (70-99); Potassium 3.4 mmol/L (3.5-5.1); Sodium 131 mmol/L (135-145); eGFR > 60.00
--- NOTE | 2025-07-23 21:40 | PTCARENOTE ---
RN made aware of critical calcium of 6.3. ZOILA Poole notified. No new orders at this time. Plan of care ongoing.
[2025-07-23 23:00] VITALS: BP 120/51
[2025-07-24] VITALS (9 sets, daily range): BP systolic 105–128; BP diastolic 46–61
[2025-07-24 05:29] LABS: ALT (SGPT) 27 U/L (0-35); AST (SGOT) 53 U/L (14-36); Albumin 2.7 g/dl (3.5-5.0); Blood Urea Nitrogen 3 mg/dl (7-17); Calcium 6.0 mg/dl (8.4-10.2); Carbon Dioxide 26 mmol/L (22-30); Chloride 106 mmol/L (98-107); Estimated Creatinine Clearance 92 ml/min; Glucose 110 mg/dl (70-99); Potassium 3.1 mmol/L (3.5-5.1); Sodium 134 mmol/L (135-145); Total Protein 4.9 g/dl (6.3-8.2); eGFR > 60.00
--- NOTE | 2025-07-24 05:30 | PTCARENOTE ---
RN made aware of critical calcium of 6.0. ZOILA Poole notified. Orders for calcium gluconate infusion. Refer to MAR. Plan of care ongoing.
[2025-07-24 05:33] LABS: Alkaline Phosphatase > 2400 U/L (38-126)
[2025-07-24 05:37] LABS: Hematocrit 21.4 % (37.0-47.0); Hemoglobin 7.3 g/dL (12.0-16.0); Mean Corp Hgb Conc. 34.1 g/dL (33.0-37.0); Mean Corpuscular Volume 85.9 fL (81.0-99.0); Platelet Count 99 10^3/uL (130-400); Red Cell Dist. Width 22.6 % (11.5-14.5)
[2025-07-24] MEDS: CALCIUM GLUCONATE 280 MG IV (05:56)
[2025-07-24] MEDS: OSCAL CAL 500 1000 MG PO ×4 (09:03→21:41)
[2025-07-24] MEDS: ROCALTROL 1 MCG PO ×2 (09:03→21:40)
[2025-07-24] MEDS: PROTONIX 40 MG PO ×2 (09:03→21:40)
[2025-07-24] MEDS: CARAFATE 1 GRAM PO ×2 (09:03→21:40)
[2025-07-24] MEDS: LOVENOX 40 MG SC (09:04)
[2025-07-24 09:07] LABS: Magnesium 1.7 mg/dl (1.6-2.3)
[2025-07-24] MEDS: KCL ELIXIR 40 MEQ PO (09:19)
[2025-07-24] MEDS: NEUTRA-PHOS POWDER PACKET PO (09:20)
[2025-07-24 09:23] LABS: Absolute Neutrophils -Man Diff 11.7 10^3/uL (1.4-6.5); Normal RBC Morphology Yes; Platelets Checked Yes
[2025-07-24 09:24] LABS: Total Cells Counted 100
--- NOTE | 2025-07-24 09:31 | W.PN.ONC2 ---
Documented by User: Nga John MD, Resident 07/24/25 11:04
Today's Communication / Plan
-
Continue IV and PO calcium as needed: Primary team to increase calcium carbonate and calcitriol
Dr. Shantelle Quinteros/Shady Drake re: outpatient mgmt with calcium infusion is set up, patient to communicate with office to coordinate
CTM CMP
Impression
Impression
stage IV gastric cancer via bone marrow biopsy, no loss of mismatch repair deficiency on [employer] or [employer]- PDL 1 not detected -EGD gastric bx May 2025 no malignancy -PET with stomach & bone uptake
s/p C1 FOLFOX 07/08, pegfilgrastim 07/10
s/p 1st dose of xgeva 07/08
AOCD/malignancy DONI started 07/10 - iron 144, IS 48. ferritin 984 -SPEP no M spike -acute on chronic anemia
pancytopenia 2/2 bone marrow involvement of malignancy, chemotherapy
healing fracture pubic ramus
Iatrogenic hypocalcemia
hypovitaminosis D
stable transaminitis
unclear etiology for elevated Ca27.29 -BMBx was ER, [place] negative
Plan
Plan
- Continue IV and PO calcium as needed: Primary team to increase calcium carbonate and calcitriol
--C/S with endocrinology if needed
- Dr. Shantelle Quinteros/Shady Drkae re: outpatient mgmt with calcium infusion is set up, patient to communicate with office to coordinate
- Daily CBC and CMP
- Follow-up with Dr. Pepper outpatient
--- Repeat EGD 07/16 w/ additional biopsies obtained - Path + for gastric cancer, sent for add'l studies (PLD1, Claudin 18.2) which weren't able to be performed on decalcified bone biopsy
Subjective/Objective
Chief Complaint
Weakness, oral paresthesias, low calcium s/p 1 dose of Xgeva
Subjective
- This morning, she reports feeling ready to go home. She states that she is a lot better than she first came in. She would like to know what the outpatient plan is. Other than that she does not have any acute concerns or complaints.
Vital Signs:
Vital Signs
Temp Pulse Resp BP Pulse Ox
98.4 F 110 18 114/53 96
07/24/25 07:00 07/24/25 07:00 07/24/25 07:00 07/24/25 07:00 07/24/25 07:00
Lab Results:
Laboratory Data
WBC 20.9 10^3/uL (4.8-10.8) H 07/24/25 04:43
Hgb 7.3 g/dL (12.0-16.0) L 07/24/25 04:43
Plt Count 99 10^3/uL (130-400) L 07/24/25 04:43
eGFR > 60.00 07/24/25 04:43
Physical Exam
HEENT: Moist Mucous Membranes
Cardiology: Normal Sinus Rhythm
Pulmonary: Clear
GI: Soft

Documented by User: Cisco Hirsch MD 07/24/25 11:33
Plan
Plan
- Continue IV and PO calcium as needed: Primary team to increase calcium carbonate and calcitriol
--C/S with endocrinology if needed
- Dr. Pepper D/W Endo re: outpatient mgmt with calcium infusion is set up, patient to communicate with office to coordinate
- Daily CBC and CMP
- Follow-up with Dr. Pepper outpatient
--- Repeat EGD 07/16 w/ additional biopsies obtained - Path + for gastric cancer, sent for add'l studies (PLD1, Claudin 18.2) which weren't able to be performed on decalcified bone biopsy
Oncology Addendum:
Patient seen and evaluated and agree w/ resident note and plan as outlined
-hypocalcemia - cont IV calcium repletion
-outpt plan for IV calcium repletion to be determined by Dr. Pepper
Will continue to follow with you
--- NOTE | 2025-07-24 10:58 | W.PN.HOSP.TC ---
Today's Communication/Plan
-
Continue with IV electrolyte repletion
Plan for 1 unit of blood transfusion
Lasix x 1 dose
Awaiting outpatient infusion center set up
Assessment / Plan
Assessment / Plan
Gen: NAD, AAOx3.
Eyes: EOMI, P , no scleral icterus.
Neck: supple.
CV: continues to remain tachy, reg rhythm, +S1/S2, no m/r/g.
Resp: CTAB anteriorly, no rales, wheezes, or rhonchi.
Skin: No rashes. 2+ B/L LE edema
Neuro: CN 2-12 intact, non-focal.
Psych: Normal mood and affect.
Symptomatic Hypocalcemia:
-likely due to Xgeva and Vit D deficiency
-50,000IU Vit-D2 weekly x 6 weeks
-s/p multiple doses of IV Ca and calcium infusion.
-Corrected Ca at 7
-Increased po calcium carbonate 1000mg QID. Cont Calcitriol dose increased to 1 mcg twice daily.
-Per endocrinology stabilization of calcium could take weeks. Per discussion with Dr. Pepper IV calcium infusion can be set up as outpatient if needed. Patient in discussion with infusion center if IV calcium transfusion can be scheduled for
tomorrow.
Symptomatic anemia:
-likely due to chemotherapy (thrombocytopenia also noted)
-Hb with slow downtrend at 7.3 will transfuse additional unit of PRBC
-cont PPI BID
-s/p EGD/EUS/FNA as above, follow path with gastric adenocarcinoma and oncology ordered further studies.
Mild iatrogenic volume overload
- Lasix 20mg x 1 dose and assess response
Hearing loss and B/L ear congestion:
-seen by ENT, wax removed from R ear
-outpt f/u for audiogram/tympanogram
-finally improving on 07/20
Leukocytosis:
Bicytopenia secondary to bone marrow involvement of malignancy and chemotherapy
Acute on chronic thrombocytopenia
-plateau/downtrending
-currently afebrile
-received pegfilgrastim 07/10
-no s/s of infection. Plt improving.
-onc following
B/L LE edema:
-likely volume related
-B/L LE U/S-neg for dvt
Other problems:
Asymptomatic bacteriuria
Prolonged QTc: improved to 458 ms on recent ECG,
Hyponatremia, mild
Hypokalemia, resolved
Hypophosphatemia-replete IV/PO.
Transaminitis and elevated alkaline phosphatase due to malignancy, chronic, unchanged
h/o gastric CA (negative biopsy from stomach), positive bone marrow biopsy for gastric ca, s/p FOLFOX, ONC following
FULL
DVT ppx-lovenox
Discussed with daughter over the phone in details
Anticipated Discharge: Today
Subjective/Interval History
-
Date of Service: July 24, 2025
Trying her best to increase her appetite
States feels the same.
States has been talking to infusion center for IV calcium infusion-hoping to reschedule for tomorrow
Objective Data
-
Labs:
Laboratory Results
07/24/25
04:43
WBC 20.9 H
Hgb 7.3 L
Hct 21.4 L
Plt Count 99 L
Sodium 134 L
Potassium 3.1 L
Chloride 106
Carbon Dioxide 26
BUN 3 L
Creatinine 0.4 L
Glucose 110 H
Calcium 6.0 L*
Total Bilirubin 0.6
AST 53 H
ALT 27
Alkaline Phosphatase > 2400 H
Vital Signs:
Vital Signs
Temp Pulse Resp BP Pulse Ox
98.4 F 110 18 114/53 96
07/24/25 07:00 07/24/25 07:00 07/24/25 07:00 07/24/25 07:00 07/24/25 07:00
I&O
07/23/25 07/24/25 07/25/25
06:59 06:59 06:59
Intake Total 750 / 750 1680 / 1680
Balance 750 / 750 1680 / 1680
Data Reviewed
-
Total Time Spent with Patient (in minutes): 60
[2025-07-24] MEDS: SODIUM PHOSPHATE 255 MEQ IV (12:02)
[2025-07-24] MEDS: LASIX 20 MG IV (12:19)
--- NOTE | 2025-07-24 12:27 | CM ---
Addendum entered by Ronel Benson 07/24/25 12:49:
staying with [facility] (address in [facility])
Original Note:
patient seen at bedside
PT rec home health
options reviewed of home health agencies
patient prefers [facility] - she states she will be staying with her daughter when she is discharged
notified [facility] liaison, referral to be added in [facility]
PLAN: Home with her daughter at discharge, with [facility]
[2025-07-24] MEDS: KCL 20 MEQ PO (13:36)
--- NOTE | 2025-07-24 14:20 | VNURNOTE ---
Home Health Liaison met with patient and daughter at bedside to discuss [facility] nurse/therapy, visits, schedule and homebound status. Patient is agreeable and understands that visits at home will be 2-3 x per week to assess and teach medical
management. She is aware that [facility] will contact them for start of care within a week after discharge from . Provided contact number for [facility].
[facility] referral completed in [facility].
[2025-07-24 20:50] LABS: Blood Urea Nitrogen 2 mg/dl (7-17); Calcium 5.8 mg/dl (8.4-10.2); Carbon Dioxide 24 mmol/L (22-30); Chloride 103 mmol/L (98-107); Estimated Creatinine Clearance 92 ml/min; Glucose 106 mg/dl (70-99); Potassium 3.6 mmol/L (3.5-5.1); Sodium 131 mmol/L (135-145); eGFR > 60.00
--- NOTE | 2025-07-24 21:00 | PTCARENOTE ---
This RN made aware of critical calcium of 5.8. ZOILA Shore notified. Orders for calcium gluconate infusion. Refer to MAR. Plan of care ongoing.
[2025-07-24] MEDS: NEURONTIN 300 MG PO (21:41)
[2025-07-24] MEDS: CALCIUM GLUCONATE 130 MG IV (21:46)
[2025-07-25] VITALS (7 sets, daily range): BP systolic 101–131; BP diastolic 47–59; PULSE 104; O2SAT 96
[2025-07-25 00:50] LABS: Calcium 6.6 mg/dl (8.4-10.2)
[2025-07-25 01:25] LABS: Hematocrit 26.5 % (37.0-47.0); Hemoglobin 9.2 g/dL (12.0-16.0)
[2025-07-25 06:19] LABS: Hematocrit 24.8 % (37.0-47.0); Hemoglobin 8.5 g/dL (12.0-16.0); Mean Corp Hgb Conc. 34.3 g/dL (33.0-37.0); Mean Corpuscular Volume 86.1 fL (81.0-99.0); Platelet Count 106 10^3/uL (130-400); Red Cell Dist. Width 22.0 % (11.5-14.5)
[2025-07-25 06:23] LABS: ALT (SGPT) 26 U/L (0-35); AST (SGOT) 55 U/L (14-36); Albumin 2.8 g/dl (3.5-5.0); Blood Urea Nitrogen < 2 mg/dl (7-17); Calcium 6.0 mg/dl (8.4-10.2); Carbon Dioxide 25 mmol/L (22-30); Chloride 106 mmol/L (98-107); Estimated Creatinine Clearance 92 ml/min; Glucose 99 mg/dl (70-99); Magnesium 1.7 mg/dl (1.6-2.3); Potassium 3.6 mmol/L (3.5-5.1); Sodium 134 mmol/L (135-145); Total Protein 5.1 g/dl (6.3-8.2); eGFR > 60.00
[2025-07-25 07:11] LABS: Absolute Neutrophils -Man Diff 13.5 10^3/uL (1.4-6.5); Normal RBC Morphology No; Platelets Checked Yes; Total Cells Counted 100
[2025-07-25 07:25] LABS: Alkaline Phosphatase > 2400 U/L (38-126)
[2025-07-25] MEDS: CALCIUM GLUCONATE 130 MG IV ×2 (08:54→10:32)
[2025-07-25] MEDS: LOVENOX 40 MG SC (08:56)
[2025-07-25] MEDS: OSCAL CAL 500 1000 MG PO ×4 (08:56→22:21)
[2025-07-25] MEDS: CARAFATE 1 GRAM PO ×2 (08:56→20:18)
[2025-07-25] MEDS: PROTONIX 40 MG PO ×2 (08:56→20:18)
[2025-07-25] MEDS: ROCALTROL 1 MCG PO ×2 (08:56→20:17)
--- NOTE | 2025-07-25 10:09 | W.PN.ONC2 ---
Today's Communication / Plan
-
OP follow up with Dr. Pepper upon discharge
Impression
Impression
stage IV gastric cancer via bone marrow biopsy, no loss of mismatch repair deficiency on [employer] or [employer]- PDL 1 not detected -EGD gastric bx May 2025 no malignancy -PET with stomach & bone uptake -Repeat EGD 07/16 w/ additional biopsies
obtained - Path + for gastric cancer, sent for add'l studies (PLD1, Claudin 18.2) which weren't able to be performed on decalcified bone biopsy
s/p C1 FOLFOX 07/08, pegfilgrastim 07/10
s/p 1st dose of xgeva 07/08
AOCD/malignancy DONI started 07/10 - iron 144, IS 48. ferritin 984 -SPEP no M spike -acute on chronic anemia
pancytopenia /2 bone marrow involvement of malignancy, chemotherapy
healing fracture pubic ramus
Iatrogenic hypocalcemia
hypovitaminosis D
stable transaminitis
unclear etiology for elevated Ca27.29 -BMBx was ER, [place] negative
Plan
Plan
-corrected calcium at 530am 6.6mg/dL. She is ordered for 6000mg of IV calcium, calcitriol 1mcg BID, and calcium carbonate is being switched to calcium citrate 1000mg TID
-we are able to support outpatient IV calcium up to 2g daily in Dr. Pepper's office
-f/u EGD path add'l studies (PLD1, Claudin 18.2) which weren't able to be performed on decalcified bone biopsy
Subjective/Objective
Subjective
Weakness, oral paresthesias
afebrile, no hypoxia or hypotension
denies pain or bleeding
Vital Signs:
Vital Signs
Temp Pulse Resp BP Pulse Ox
98.7 F 107 20 119/59 92
07/25/25 07:55 07/25/25 07:55 07/25/25 07:55 07/25/25 07:55 07/25/25 07:55
Lab Results:
Laboratory Data
WBC 18.8 10^3/uL (4.8-10.8) H 07/25/25 05:37
Hgb 8.5 g/dL (12.0-16.0) L 07/25/25 05:37
Plt Count 106 10^3/uL (130-400) L 07/25/25 05:37
eGFR > 60.00 07/25/25 05:36
Physical Exam
HEENT: No Jaundice
Pulmonary: Other (unlabored)
GI: Soft
Extremities: Pulses Present
--- NOTE | 2025-07-25 12:40 | W.PN.HOSP.TC ---
Addendum entered and electronically signed by Carlos Landry MD 07/25/25 14:29:
Moderate protein caloric malnutrition of chronic illness.
Discussed with Dr. Katherine Montgomery-agrees that patient should be on calcium citrate. Recommended 1000 mg 3 times daily.
Original Note:
Today's Communication/Plan
-
replete additional calcium
IV mag
Onc recs
Assessment / Plan
Assessment / Plan
Gen: NAD, AAOx3.
Eyes: EOMI, P , no scleral icterus.
Neck: supple.
CV: continues to remain tachy, reg rhythm, +S1/S2, no m/r/g.
Resp: CTAB anteriorly, no rales, wheezes, or rhonchi.
Skin: No rashes. 2+ B/L LE edema improved
Neuro: CN 2-12 intact, non-focal.
Psych: Normal mood and affect.
Symptomatic Hypocalcemia:
-likely due to Xgeva and Vit D deficiency
-50,000IU Vit-D2 weekly x 6 weeks
-s/p multiple doses of IV Ca gtt and calcium glcuate infusion. Received total of 6000mg CaGluc today.
-Corrected Ca at 7
-Due to patient's gastric cancer and on PPI may be need to change patient to calcium citrate on discharge for better absorption. Calcium citrate non formulary in hospital and thus on calcium carbonate 1g QID. Cont Calcitriol dose increased to 1 mcg
twice daily.
-Per endocrinology stabilization of calcium could take weeks. Per discussion with Dr. Pepper IV calcium infusion can be set up as outpatient if needed.
Symptomatic anemia:
-likely due to chemotherapy (thrombocytopenia also noted)
-Hb at 8.5 s/p 3u of PRBC
-cont PPI BID
-s/p EGD/EUS/FNA as above, follow path with gastric adenocarcinoma and oncology ordered further studies.
Mild iatrogenic volume overload
- Lasix 20mg x 1 dose
Hearing loss and B/L ear congestion:
-seen by ENT, wax removed from R ear
-outpt f/u for audiogram/tympanogram
-finally improving on 07/20
Leukocytosis:
Bicytopenia secondary to bone marrow involvement of malignancy and chemotherapy
Acute on chronic thrombocytopenia
-plateau/downtrending
-currently afebrile
-received pegfilgrastim 07/10
-no s/s of infection. Plt improving.
-onc following
B/L LE edema:
-likely volume related
-B/L LE U/S-neg for dvt
Other problems:
Asymptomatic bacteriuria
Prolonged QTc: improved to 458 ms on recent ECG,
Hyponatremia, mild
Hypokalemia, resolved
Hypophosphatemia-replete IV/PO. Hold further IV as not sure if affecting calcium level. Refused po
Transaminitis and elevated alkaline phosphatase due to malignancy, chronic, unchanged
h/o gastric CA (negative biopsy from stomach), positive bone marrow biopsy for gastric ca, s/p FOLFOX, ONC following
FULL
DVT ppx-lovenox
Discussed with daughter over the phone in details- per d/w with daughter, oncology would like to monitor over weekend.
Anticipated Discharge: > 48 hours
Subjective/Interval History
-
Date of Service: July 25, 2025
Received blood transfusion yesterday
states feels the same
states passed increasing amount of urine yesterday
Objective Data
-
Labs:
Laboratory Results
07/25/25 07/25/25 07/25/25
00:06 05:36 05:37
WBC 18.8 H
Hgb 9.2 L D 8.5 L
Hct 26.5 L 24.8 L
Plt Count 106 L
Sodium 134 L
Potassium 3.6
Chloride 106
Carbon Dioxide 25
BUN < 2 L
Creatinine 0.4 L
Glucose 99
Calcium 6.6 L* 6.0 L*
Total Bilirubin 0.9
AST 55 H
ALT 26
Alkaline Phosphatase > 2400 H
Vital Signs:
Vital Signs
Temp Pulse Resp BP Pulse Ox
98.6 F 107 24 115/59 94
07/25/25 11:12 07/25/25 11:12 07/25/25 11:12 07/25/25 11:12 07/25/25 11:12
I&O
07/24/25 07/25/25 07/26/25
06:59 06:59 06:59
Intake Total 1680 / 1680 1330 / 1330
Balance 1680 / 1680 1330 / 1330
[2025-07-25] MEDS: MAGNESIUM SULFATE 100 IV (14:44)
[2025-07-25] MEDS: NEURONTIN 300 MG PO (22:21)
[2025-07-25] MEDS: TYLENOL 650 MG PO (22:22)
[2025-07-26 03:35] VITALS: BP 106/57
[2025-07-26 07:00] VITALS: BP 119/57
[2025-07-26] MEDS: ROCALTROL 1 MCG PO (07:50)
[2025-07-26] MEDS: LOVENOX 40 MG SC (07:51)
[2025-07-26] MEDS: PROTONIX 40 MG PO (07:52)
[2025-07-26] MEDS: OSCAL CAL 500 1000 MG PO ×2 (07:52→12:24)
[2025-07-26] MEDS: CARAFATE 1 GRAM PO (07:52)
[2025-07-26 09:54] LABS: Hematocrit 27.4 % (37.0-47.0); Hemoglobin 9.0 g/dL (12.0-16.0); Mean Corp Hgb Conc. 32.8 g/dL (33.0-37.0); Mean Corpuscular Volume 87.5 fL (81.0-99.0); Platelet Count 124 10^3/uL (130-400); Red Cell Dist. Width 22.6 % (11.5-14.5)
--- NOTE | 2025-07-26 10:09 | W.PN.ONC2 ---
Today's Communication / Plan
-
.
Impression
Impression
stage IV gastric cancer via bone marrow biopsy, no loss of mismatch repair deficiency on [employer] or [employer]- PDL 1 not detected -EGD gastric bx May 2025 no malignancy -PET with stomach & bone uptake -Repeat EGD 07/16 w/ additional biopsies
obtained - Path + for gastric cancer, sent for add'l studies (PLD1, Claudin 18.2) which weren't able to be performed on decalcified bone biopsy
s/p C1 FOLFOX 07/08, pegfilgrastim 07/10
s/p 1st dose of xgeva 07/08
AOCD/malignancy DONI started 07/10 - iron 144, IS 48. ferritin 984 -SPEP no M spike -acute on chronic anemia
pancytopenia / bone marrow involvement of malignancy, chemotherapy
healing fracture pubic ramus
Iatrogenic hypocalcemia
hypovitaminosis D
stable transaminitis
unclear etiology for elevated Ca27.29 -BMBx was ER, [place] negative
Plan
Plan
-calcium level pending today -She is s/p 6000mg of IV calcium, calcitriol 1mcg BID, and calcium carbonate switched to calcium citrate 1000mg TID yesterday
-we are able to support outpatient IV calcium up to 2g daily in Dr. Pepper's office
-f/u EGD path add'l studies (PLD1, Claudin 18.2) which weren't able to be performed on decalcified bone biopsy
Subjective/Objective
Subjective
left hand stiff with tingling today otherwise feels good
Vital Signs:
Vital Signs
Temp Pulse Resp BP Pulse Ox
97.6 F 94 18 119/57 99
07/26/25 07:00 07/26/25 07:00 07/26/25 07:00 07/26/25 07:00 07/26/25 07:00
Lab Results:
Laboratory Data
WBC 18.3 10^3/uL (4.8-10.8) H 07/26/25 08:42
Hgb 9.0 g/dL (12.0-16.0) L 07/26/25 08:42
Plt Count 124 10^3/uL (130-400) L 07/26/25 08:42
eGFR > 60.00 07/25/25 05:36
Physical Exam
HEENT: Moist Mucous Membranes; No Jaundice
Cardiology: Normal Sinus Rhythm
Pulmonary: Other (unlabored)
GI: Soft
Extremities: Pulses Present
[2025-07-26 12:12] LABS: ALT (SGPT) 26 U/L (0-35); AST (SGOT) 51 U/L (14-36); Albumin 3.1 g/dl (3.5-5.0); Alkaline Phosphatase > 2400 U/L (38-126); Blood Urea Nitrogen 3 mg/dl (7-17); Calcium 6.5 mg/dl (8.4-10.2); Carbon Dioxide 23 mmol/L (22-30); Chloride 105 mmol/L (98-107); Estimated Creatinine Clearance 92 ml/min; Glucose 106 mg/dl (70-99); Magnesium 2.0 mg/dl (1.6-2.3); Potassium 3.9 mmol/L (3.5-5.1); Sodium 133 mmol/L (135-145); Total Protein 5.5 g/dl (6.3-8.2); eGFR > 60.00
[2025-07-26 12:16] VITALS: BP 120/63
[2025-07-26 12:43] LABS: Normal RBC Morphology No; Platelets Checked Yes
[2025-07-26 12:44] LABS: Absolute Neutrophils -Man Diff 12.2 10^3/uL (1.4-6.5)
--- NOTE | 2025-07-26 12:45 | W.PN.HOSP.TC ---
Today's Communication/Plan
-
replete IV calc
op onc f/u
Assessment / Plan
Assessment / Plan
Gen: NAD, AAOx3.
Eyes: EOMI, P , no scleral icterus.
Neck: supple.
CV: continues to remain tachy, reg rhythm, +S1/S2, no m/r/g.
Resp: CTAB anteriorly, no rales, wheezes, or rhonchi.
Skin: No rashes. 2+ B/L LE edema improved
Neuro: CN 2-12 intact, non-focal.
Psych: Normal mood and affect.
Symptomatic Hypocalcemia:
-likely due to Xgeva and Vit D deficiency
-50,000IU Vit-D2 weekly x 6 weeks
-s/p multiple doses of IV Ca gtt and calcium gluconate infusion.
-Corrected Ca at 7.2
-Due to patient's gastric cancer and on PPI may be need to change patient to calcium citrate on discharge for better absorption. Calcium citrate non formulary in hospital and thus on calcium carbonate 1g QID. Cont Calcitriol dose increased to 1 mcg
twice daily.
-Per endocrinology stabilization of calcium could take weeks. Per discussion with Dr. Pepper IV calcium infusion can be set up as outpatient if needed. Discussed with Dr. Montgomery agrees that patient should be on calcium citrate upon
discharge to 1 g 3 times daily.
Symptomatic anemia:
-likely due to chemotherapy (thrombocytopenia also noted)
-Hb at 9 s/p 3u of PRBC
-cont PPI BID
-s/p EGD/EUS/FNA as above, follow path with gastric adenocarcinoma and oncology ordered further studies.
Mild iatrogenic volume overload
- Lasix 20mg x 1 dose
Hearing loss and B/L ear congestion:
-seen by ENT, wax removed from R ear
-outpt f/u for audiogram/tympanogram
-finally improving on 07/20
Leukocytosis:
Bicytopenia secondary to bone marrow involvement of malignancy and chemotherapy
Acute on chronic thrombocytopenia
-wbc downtrending
-currently afebrile
-received pegfilgrastim 07/10
-no s/s of infection. Plt improving.
-onc following
B/L LE edema:
-likely volume related
-B/L LE U/S-neg for dvt
Other problems:
Asymptomatic bacteriuria
Prolonged QTc: improved to 458 ms on recent ECG,
Hyponatremia, mild
Hypokalemia, resolved
Hypophosphatemia-encourage increased p.o. intake. Refusing p.o.
Transaminitis and elevated alkaline phosphatase due to malignancy, chronic, unchanged
h/o gastric CA (negative biopsy from stomach), positive bone marrow biopsy for gastric ca, s/p FOLFOX, ONC following
FULL
DVT ppx-lovenox
Discussed with daughter over the phone in details- per d/w with daughter. Daughter stated she d/w wtih Dr. Pepper. Agreed with discharged today. OP infusion set up on monday.
More than 30 minutes spent in discharge including
Final examination of the patient
Summarizing hospital stay
Instructions for continuing care to all relevant caregivers
Preparation of discharge records, prescriptions, and referral forms
Total time spent (in minutes): 52
Anticipated Discharge: Today
Subjective/Interval History
-
Date of Service: July 26, 2025
no complaints
improvement in hgb
Objective Data
-
Labs:
Laboratory Results
07/26/25
08:42
WBC 18.3 H
Hgb 9.0 L
Hct 27.4 L
Plt Count 124 L
Sodium 133 L
Potassium 3.9
Chloride 105
Carbon Dioxide 23
BUN 3 L
Creatinine 0.4 L
Glucose 106 H
Calcium 6.5 L*
Total Bilirubin 0.8
AST 51 H
ALT 26
Alkaline Phosphatase > 2400 H
Vital Signs:
Vital Signs
Temp Pulse Resp BP Pulse Ox
98.1 F 101 17 120/63 98
07/26/25 12:16 07/26/25 12:16 07/26/25 12:16 07/26/25 12:16 07/26/25 12:16
I&O
07/25/25 07/26/25 07/27/25
06:59 06:59 06:59
Intake Total 1330 / 1330 790 / 790
Balance 1330 / 1330 790 / 790
[2025-07-26] MEDS: CALCIUM GLUCONATE 130 MG IV (12:46)
[2025-07-26 12:55] LABS: Anisocytosis 1+; Hypochromasia 1+; Microcytosis 1+
[2025-07-26 12:56] LABS: Rouleaux 1+; Spherocytes 1+; Total Cells Counted 100
--- NOTE | 2025-07-26 13:38 | CM ---
patient discharge today
[facility] referral in [facility]
outpatient IV calcium set up with Dr. Pepper's office
PLAN: Home with [facility]
dtr to transport
--- NOTE | 2025-07-26 14:53 | W.DCSUMMARY ---
Discharge Summary
Discharge Data
Date of Admission: 07/13/25
Date of Discharge: 07/26/25
-
Pending Results: No
Hospital Course
60-year-old female past medical history of gastric cancer status post chemotherapy here with symptomatic hypocalcemia. Patient was found to have severely low calcium level which was deemed likely secondary to Xgeva and vitamin D deficiency.
Oncology and endocrinology and gastroenterology was consulted. Patient also was eval by gastroenterology, had EGD/EUS/FNA with biopsy. Patient was severely anemic and received blood transfusions. Hemoglobin stabilized. PPI was continued twice
daily. Biopsy consistent with gastric adenocarcinoma and oncology ordered further studies. Patient was also found to c/o hypocalcemia and was started on p.o. vitamin D calcium supplementation. Patient was also started on calcium infusion. IV
calcium infusion was eventually stopped. Received intermittent IV calcium gluconate. Patient was started on calcium carbonate 1 g 4 times daily, calcitriol 1 mcg twice daily and vitamin D 50,000 supplementation. Upon discharge calcium carbonate
will be transition to calcium citrate. Due to patient's gastric cancer and on PPI need to change patient to calcium citrate on discharge for better absorption. Calcium citrate non formulary in hospital and thus on calcium carbonate 1g QID.
oncology also set up for outpatient IV calcium infusion. Patient was encouraged to increase her p.o. intake. Patient will be following outpatient with the oncology closely to maintain her calcium level appropriate and will be receiving IV calcium
gluconate in the infusion center. Patient daughter Dr HerreraEvans was updated and agreed and verbalized understanding for discharge.
Discharge Plan
-
Patient Disposition: Home (Routine Discharge)
Discharge Diagnosis/Procedures: Symptomatic hypocalcemia
Vitamin D deficiency
Symptomatic anemia
Pancytopenia
Subsequently with leukocytosis
Lower extremity edema
Hyponatremia
Hypokalemia
Hypophosphatemia
Condition: Fair
Diet: Regular
Activity: As tolerated
Activity Restrictions/Additional Instructions:
Keep your infusion appointment on Monday and preinfusion blood work will be ordered by oncology..
Referrals:
Jamila Pepper MD [Active, Oncology]
Referral Note: Continue oral calcium until recommended to be stopped by oncology
Karina Knutson MD [Family Provider] - in less than 1 week
Prescriptions:
New
calcitriol 0.5 mcg capsule
1 mcg PO BID Qty: 60 0RF
calcium citrate 250 mg calcium tablet
1,000 mg PO TID 30 Days Qty: 360 0RF
ergocalciferol (vitamin D2) 1,250 mcg (50,000 unit) capsule
1,250 mcg PO QWEEK Qty: 4 0RF
Rx Instructions:
every monday
Continued
sucralfate 1 gram Tablet
1 g PO BID
gabapentin 100 mg Capsule
300 mg PO HS
ondansetron HCl 8 mg tablet
8 mg PO Q8HPRN PRN (Reason: nausea)
prochlorperazine maleate 10 mg tablet
10 mg PO Q6HPRN PRN (Reason: nausea)
omeprazole 40 mg capsule,delayed release(DR/EC)
40 mg PO BID
alprazolam 0.25 mg tablet
0.25 mg PO Q8HPRN PRN (Reason: anxiety)
Patient Comments:
07/14/25: filled #15/5 day supply on 07/02/25 [id number] - Dr Jamila Pepper
acetaminophen 500 mg Tablet
1,000 mg PO DAILYPRN PRN (Reason: pain)
Discontinued
calcium citrate 200 mg (950 mg) Tablet
600 mg PO DAILY
Discharge Orders:
Discharge Patient (As Directed); Ordered 07/26/25
Ordered By: Carlos Landry
Discharge Date and Time
Print Language: MACEDONIAN
[2025-07-26 15:39] VITALS: BP 110/48
== END 2025-07-26 15:10 | disposition home health service (06) | DRG 543 ==
LOC: 3 WEST ACU 23:39
PROVIDERS: Internal Medicine; Internal Medicine Gastroenterology; Internal Medicine Hematology & Oncology; Nurse Practitioner Acute Care; Nurse Practitioner Family; ADMITTING PHYSICIAN Internal Medicine; ATTENDING PHYSICIAN Hospitalist; CONSULT PHYSICIAN Internal Medicine; CONSULT PHYSICIAN Otolaryngology Facial Plastic Surgery; EMERGENCY PHYSICIAN Emergency Medicine; FAMILY PHYSICIAN Student in an Organized Health Care Education/Training Program; OTHER PHYSICIAN Internal Medicine Endocrinology, Diabetes & Metabolism; OTHER PHYSICIAN Internal Medicine Gastroenterology; OTHER PHYSICIAN Internal Medicine Hematology & Oncology
PROC: 30243N1 Transfusion of Nonautologous Red Blood Cells into Central Vein, Percutaneous Approach (ICD-10-PCS; 2025-07-14)
PROC: 0DB68ZX Excision of Stomach, Via Natural or Artificial Opening Endoscopic, Diagnostic (ICD-10-PCS; 2025-07-16)
PROC: 0DB78ZX Excision of Stomach, Pylorus, Via Natural or Artificial Opening Endoscopic, Diagnostic (ICD-10-PCS; 2025-07-16)
PROC: 0D978ZX Drainage of Stomach, Pylorus, Via Natural or Artificial Opening Endoscopic, Diagnostic (ICD-10-PCS; 2025-07-16)
PROC: 30243R1 Transfusion of Nonautologous Platelets into Central Vein, Percutaneous Approach (ICD-10-PCS; 2025-07-16)
DX: C79.51 Secondary malignant neoplasm of bone (principal); C16.9 Malignant neoplasm of stomach, unspecified; N39.0 Urinary tract infection, site not specified; E87.1 Hypo-osmolality and hyponatremia; E44.0 Moderate protein-calorie malnutrition; E83.51 Hypocalcemia; C79.52 Secondary malignant neoplasm of bone marrow; R74.01 Elevation of levels of liver transaminase levels; D63.8 Anemia in other chronic diseases classified elsewhere; H93.13 Tinnitus, bilateral; E86.0 Dehydration; T45.1X5A Adverse effect of antineoplastic and immunosuppressive drugs, initial encounter; D69.59 Other secondary thrombocytopenia; D72.825 Bandemia; H91.90 Unspecified hearing loss, unspecified ear; K31.89 Other diseases of stomach and duodenum; K29.70 Gastritis, unspecified, without bleeding; K25.9 Gastric ulcer, unspecified as acute or chronic, without hemorrhage or perforation; K86.9 Disease of pancreas, unspecified; D64.81 Anemia due to antineoplastic chemotherapy; E83.39 Other disorders of phosphorus metabolism; F41.9 Anxiety disorder, unspecified; K21.9 Gastro-esophageal reflux disease without esophagitis; H83.8X2 Other specified diseases of left inner ear; E87.6 Hypokalemia; R74.8 Abnormal levels of other serum enzymes; S32.509D Unspecified fracture of unspecified pubis, subsequent encounter for fracture with routine healing; X58.XXXD Exposure to other specified factors, subsequent encounter; Z87.11 Personal history of peptic ulcer disease; Z92.21 Personal history of antineoplastic chemotherapy; Z80.0 Family history of malignant neoplasm of digestive organs; Z68.27 Body mass index [BMI] 27.0-27.9, adult; Z80.1 Family history of malignant neoplasm of trachea, bronchus and lung
CPT/HCPCS: 80048; 80053; 81003; 81015; 81050; 82248; 82306; 82310; 82330; 82340; 82570; 82607; 82652; 82746; 83540; 83550; 83605; 83690; 83735; 83970; 84100; 84443; 84484; 85014; 85018; 85025; 85027; 85045; 86850; 86900; 86901; 86920; 87040; 87077; 87086; 87186; 88172; 88173; 88177; 88305; 88341; 88342; 88360; 93005; 93970; 97116; 97162; 97166; 97530; 99285; P9016; P9073